=== PATIENT | female | born 1955 | race Caucasian/White ===

== ENCOUNTER 2023-05-13 23:25 | Inpatient (IN) | payer MEDICARE, OTHER, SELFPAY ==
[2023-05-13 18:55] VITALS: BP 143/64
[2023-05-13 19:12] VITALS: BMI 47.9
[2023-05-13 19:16] VITALS: BP 121/57
[2023-05-13] MEDS: DUONEB 3 ML INH ×2 (19:21→22:24)
[2023-05-13] MEDS: SOLU-MEDROL PF 125 MG IV (19:25)
[2023-05-13 19:28] LABS: % Basophils 0.3 % (0-2); % Eosinophils 0.2 % (0-6); % Immature Granulocytes 0.5 % (0-0.5); % Lymphocytes 13.4 % (20.5-51.1); % Neutrophils 73.6 % (42.2-75.2); Absolute Immature Granulocytes 0.1 10^3/uL (0-0.05); Absolute Lymphocytes 1.6 10^3/uL (1.2-3.4); Absolute Monocytes 1.4 10^3/uL (0.1-0.6); Absolute Neutrophils 8.6 10^3/uL (1.4-6.5); Hematocrit 50.3 % (37.0-47.0); Hemoglobin 15.9 g/dL (12.0-16.0); Mean Corp Hgb Conc. 31.6 g/dL (33.0-37.0); Mean Corpuscular Hgb 29.4 pg (27.0-31.0); Mean Platelet Volume 10.9 fL (7.4-10.4); Nucleated Red Blood Cells % 0 %; Platelet Count 223 10^3/uL (130-400); Red Blood Cell Count 5.41 10^6/uL (4.20-5.40); Red Cell Dist. Width 13.4 % (11.5-14.5); White Blood Cell Count 11.6 10^3/uL (4.8-10.8)
[2023-05-13 19:42] LABS: Lactic Acid 1.2 mmol/L (0.7-2.0)
[2023-05-13 19:45] LABS: APTT 23.4 Sec (23.4-35.0); INR 1.07; PT 13.9 Sec (11.4-14.6)
[2023-05-13 19:48] LABS: D-Dimer 0.64 ug/mlFEU (0.00-0.50)
--- NOTE | 2023-05-13 19:54 | ED.GENMED ---
History of Present Illness
General
Chief Complaint: Breathing Problem
Source: patient and family
Exam Limitations: none
Time Seen by Provider: 05/13/23 19:17
Nursing documentation reviewed up to this point in time: agreed with
Travel History
Have you had any contact with someone who has COVID-19?: No
Do you have any symptoms of coronavirus? Fever > 100 degrees, chills, cough, shortness of breath, sore throat, loss of taste or smell, muscle aches, or headache?: Yes
Symptoms:: cough, SOB
History of Present Illness
History of Present Illness:
67-year-old female with a past medical history of asthma, obesity who presents to the emergency department accompanied by her children for evaluation of shortness of breath. Patient reports that she has been dealing with subacute cough�persistent
coughing for about 6 weeks or so. Cough is mostly nonproductive although she says she occasionally bring up some sputum. It sounds like over the same period of time she has had progressive shortness of breath. Today she finally saw her primary
doctor who noted she was hypoxic and directed her to the emergency room for assessment�pulse ox was apparently consistently less than 85% in PCP office today. Patient denies any chest pain. She denies any recent fevers or chills. Has not noticed
any significant swelling in her legs. She has not had any GI symptoms. She has not had any congestion, sore throat/runny nose. She does have a history of asthma and says that she has had some sensation of decreased air movement recently and says
she has been using her albuterol inhalers with some relief of her symptoms. She denies any known cardiac history; non-smoker.
Review of Systems
Review of Systems
All Other Systems: ROS reviewed and negative except as documented in HPI and ROS
Constitutional: Denies fever or chills
EENT: Denies sore throat or runny nose
Respiratory: Reports cough and trouble breathing
Cardiac: Denies chest pain or palpitations
ABD/GI: Denies abdominal pain, nausea, vomiting or diarrhea
: Denies flank pain
Musculoskeletal: Denies edema, neck pain or back pain
Neurological: Denies headache
Phy Exam
Physical Exam
Physical Exam:
General: Awake, alert; no acute distress
Head: Normocephalic, atraumatic
Eyes: Conjunctiva normal, sclera anicteric
Throat: Airway intact, handling secretions
Neck: Trachea midline, no JVD noted
Lungs: Breath sounds slightly diminished at the lung bases but no focal wheezing, rales, rhonchi appreciated and patient appears to be moving good air; she has hypoxia to 70% on room air requiring 4 L nasal cannula to maintain saturations;
respiratory rate 20-22 slightly elevated but not in respiratory distress
Heart: Regular rate and rhythm, no murmurs, gallops, or rubs appreciated
Abd: Soft, non distended, nontender
Neuro: Cranial nerves grossly intact, speech fluid
Skin: no rash
Extremities: No edema in extremities, warm well-perfused with good pulses in all extremities
Scores
Heart Failure Risk
Heart Failure Risk Score: Not Applicable
Heart Score for Chest Pain Patients
STEMI patient?: Not applicable
Withdrawal Assessment of Alcohol
Withdrawal Assessment Completed?: Not applicable
Course
Orders/Labs/Results
Orders:
Orders
05/13/23 19:13
Electrocardiogram (*1) Urgent
Reason for Study: Other
Other Reason for Exam: Possible Sepsis
Cardiac Monitoring- Treatment ONCE
IV Insert/Care/Rem.- Treatment PRN
O2 Therapy [RESP] Urgent
Titrate/Wean O2 to maintain O2 sat greater than (%): 93
Special Instructions: TO MAINTAIN CONTINUOUS O2 SATS > OR = 93%
Pulse Ox/cont/shift [RESP] Urgent
Quantity: 1
Special Instructions: CONTINUOUS
05/13/23 19:14
CR Chest - 2 Views Urgent
Comment:
Reason For Exam: suspected infection
05/13/23 19:17
Complete Blood Count/With Diff Urgent
Comprehensive Metabolic Panel Urgent
Lactic Acid Q4H
Comment: ON ICE, CANCEL 2ND ORDER IF FIRST LACTIC ACID LEVEL <2
Blood Culture Q30M
SURY Source: Blood/Venous
Specimen Description:
Comment: FROM 2 SEPARATE SITES
Blood Culture Q30M
SURY Source: Blood/Venous
Specimen Description:
Comment: FROM 2 SEPARATE SITES
05/13/23 19:18
MethylPREDNISolone PF [Solu-Medrol Pf] 125 mg IV NOW STA
05/13/23 19:19
D-Dimer Urgent
NT-proBNP Urgent
PTT Urgent
Prothrombin Time Urgent
Ipratropium/Albuterol Sulfate [Duoneb] 3 ml INH R NOW ONE
05/13/23 19:25
COVID-19 Antigen Urgent
Source: Nasal Swab
Influenza A+B Rapid Molecular Urgent
SURY Source: Nasal Swab
Specimen Description:
05/13/23 19:59
Electrocardiogram (*1) Urgent
Reason for Study: Shortness of Breath
EKG- Treatment ONCE
05/13/23 20:08
CT Chest Pe Study Urgent
Comment:
Reason For Exam: hypoxia
Abnormal Lab Results
05/13/23 05/13/23
19:17 19:19
WBC 11.6 H 10^3/uL
(4.8-10.8)
RBC 5.41 H 10^6/uL
(4.20-5.40)
Hct 50.3 H %
(37.0-47.0)
MCHC 31.6 L g/dL
(33.0-37.0)
MPV 10.9 H fL
(7.4-10.4)
Abs Immat Gran (auto) 0.1 H 10^3/uL
(0-0.05)
Absolute Neuts (auto) 8.6 H 10^3/uL
(1.4-6.5)
Absolute Monos (auto) 1.4 H 10^3/uL
(0.1-0.6)
Lymphocytes % 13.4 L %
(20.5-51.1)
Monocytes % 12.0 H %
(1.7-9.3)
D-Dimer 0.64 H ug/mlFEU
(0.00-0.50)
Chloride 95 L mmol/L
(98-107)
Carbon Dioxide 40 H mmol/L
(22-30)
BUN 19 H mg/dl
(7-17)
Total Bilirubin 3.6 H mg/dl
(0.2-1.3)
05/13/23 19:17
05/13/23 19:17
Vital Signs
Initial and Last Documented VS:
Initial Vital Signs
Temp Pulse Resp BP Pulse Ox
37.1 C 66 20 143/64 78
05/13/23 18:55 05/13/23 18:55 05/13/23 18:55 05/13/23 18:55 05/13/23 18:55
Last Documented Vital Signs
Temp Pulse Resp BP Pulse Ox
37.1 C 71 10 130/42 92
05/13/23 18:55 05/13/23 21:30 05/13/23 21:30 05/13/23 21:28 05/13/23 21:30
MDM/Problems Addressed
Differential Diagnosis Includes:
Asthma exacerbation, pneumonia, pulmonary embolism
MDM/Problems Addressed:
67-year-old female presents to the emergency room for evaluation of subacute cough and worsening shortness of breath over the past 6 weeks, noted to be hypoxic at PCP office today. She arrives to us with a pulse ox of 78% on room air; she is
afebrile, respiratory rate slightly increased but she is not in respiratory distress. Physical exam as above. Plan placed IV check labs including a CBC and a CMP, coags, D-dimer. Will check a BNP. Check chest x-ray. Check an EKG. Check viral
swabs. Treat with some steroid and albuterol as she has had some symptomatic improvement with albuterol at home does have a known history of asthma although she does not have any significant wheezing on exam at present certainly not to explain
significant hypoxia. Will monitor closely reassess after the above.
Labs reviewed: CBC shows slight leukocytosis 12.6. CMP shows CO2 of 40 suggesting some degree of CO2 retention chronically. Will add on VBG. Mental status good. BNP is 623. COVID and flu negative. Chest x-ray no acute disease. D-dimer was
positive. Will send for CTA to rule out PE.
CTA negative for PE or any other acute pathology. At this point asthma or bronchitis seems most likely although again wheezing somewhat minimal. Will continue with Oksana, plan for admission for continued management of acute respiratory failure
with hypoxia. Case discussed with hospitalist for admission.
Chronic conditions affecting care:
Asthma, obesity
*Radiology
Radiology exam reviewed: preliminary read by ED provider and radiology read reviewed
*Pulse Oximetry
Patient hypoxic: yes
*Critical Care Note
Total Time (30-74mins, 75-104mins- exclusive of procedures): Not Applicable
Data Reviewed
Source: patient, records and family
Patient Management
Discussion with other providers: Hospitalist (Discussed with hospitalist)
Escalation/DeEscalation of care consider admission/obs:
Admission indicated
ED Attending Note
-
Portions of this chart may have been created with voice recognition software.� Occasional wrong word or��sound alike� substitutions may have occurred due to the inherent limitations of voice recognition software.
Discharge Plan
Departure
Patient Disposition: Admit
Date of Disposition: 05/13/23
Time of Disposition: 22:12
Admit to doctor: Igro
Presentation/result/management discussed w/ accepting MD/DO: Hospitalist
Discharge Problem:
Asthma exacerbation, Acute respiratory failure with hypoxia
Referrals:
Tesha Mcnair MD [Family Provider] -
Interventions
Interventions:
*Risk Screen - Suicide Last Done: 05/13/23 18:55
*General Assessment Last Done: 05/13/23 18:55
*Neglect/Abuse Screening Last Done: 05/13/23 18:55
ED- Fall Risk Assessment Last Done: 05/13/23 19:34
*ED COVID-19 Vaccine History Last Done: 05/13/23 19:14
ED- Cardiac Assessment Last Done: 05/13/23 19:34
ED- Pulmonary Assessment Last Done: 05/13/23 19:34
[2023-05-13 19:55] LABS: NT-proBNP 623 pg/ml
[2023-05-13 19:59] LABS: ALT (SGPT) 18 U/L (0-35); AST (SGOT) 35 U/L (14-36); Albumin 3.8 g/dl (3.5-5.0); Alkaline Phosphatase 117 U/L (38-126); Blood Urea Nitrogen 19 mg/dl (7-17); Calcium 9.1 mg/dl (8.4-10.2); Carbon Dioxide 40 mmol/L (22-30); Estimated Creatinine Clearance 81 ml/min; Glucose 93 mg/dl (70-99); Total Bilirubin 3.6 mg/dl (0.2-1.3); Total Protein 6.8 g/dl (6.3-8.2); eGFR > 60.00
[2023-05-13 20:02] VITALS: BP 135/61
[2023-05-13 20:02] LABS: COVID-19 Antigen Negative (Negative)
[2023-05-13 20:21] LABS: Chloride 95 mmol/L (98-107); Potassium 3.9 mmol/L (3.5-5.1); Sodium 142 mmol/L (135-145)
[2023-05-13 21:28] VITALS: BP 130/42
[2023-05-13 22:00] VITALS: BP 143/53
--- NOTE | 2023-05-13 23:17 | HPS.HSE ---
Family Physician
-
Family Physician: Tesha Mcnair
Chief Complaint
-
SOB
History of Present Illness
Patient is a 67y F with PMH significant for fibromyalgia, mild asthma and morbid obesity who presents to ED complaining of cough and SOB. History obtained from patient and family at the bedside. Patient states that she has had cough for about
4-6 weeks. Cough is largely non-productive without associated fevers / chills, chest pain or other complaints. She has felt more SOB over the past 2 weeks or so. Patient has been using her albuterol MDI at home with temporary improvement in her
symptoms. She was seen by her PCP today and noted to have SpO2 around 85% in the office and was sent to the ED for further evaluation.
Family notes that patient has had periods of confusion recently. Intermittent symptoms off-and-on throughout the day.
Patient notes that she has a pulse oximeter at home. Her oxygen saturation chronically has been near 90%. More recently, she has had home readings from 85 - 90%.
Patient is in no distress at present.
Family also notes that patient has been sleeping poorly at night with daytime somnolence. Her lips occasionally appear cyanotic during sleep. They have plans to pursue outpatient sleep testing but have not yet done so.
Medical History
Past Medical History
Past Medical History: Reports Other
Additional Past Medical History:
Morbid Obesity
Fibromyalgia
Psoriasis
Lumbar Spinal Stenosis
Diverticular Disease
IBS
Mild Intermittent Asthma
Hypothyroidism
Endometriosis
Gilbert's Syndrome
Past Surgical History: Reports Other
Additional Past Surgical History:
SWETHA
Ex Lap x several
Left Hemicolectomy
Cholecystectomy
Social History
Tobacco: Non-smoker
Alcohol: None
Family History
Family History: Other (Mother: CAD, Clear Cell Cancer Father: CAD Sister: Valvular Heart Disease)
Allergies / Home Medications
Allergies reflects when Allergies were last updated in [employer].
Home Medications with original date entered in [employer]
Allergy/Medication List:
Allergies
Allergy/AdvReac Type Severity Reaction Status Date / Time
demeclocycline Allergy Hives Verified 05/13/23 19:04
metoclopramide Allergy Hives Verified 05/13/23 19:04
tramadol Allergy Hives Verified 05/13/23 19:04
Home Medications
albuterol sulfate 90 mcg/actuation aerosol inhaler 2 puff inhalation R Q6 PRN sob/wheezing 05/13/23
alprazolam 1 mg tablet 1 mg PO HS 05/13/23
ascorbic acid (vitamin C) 500 mg tablet (Vitamin C) 500 mg PO DAILY 05/13/23
atorvastatin 10 mg tablet 10 mg PO HS 05/13/23
betamethasone, augmented 0.05 % topical cream 1 applic topical BID PRN rash on hands 05/13/23
celecoxib 200 mg capsule 200 mg PO DAILY PRN knee pain 05/13/23
cholecalciferol (vitamin D3) 125 mcg (5,000 unit) tablet (Vitamin D3) 125 mcg PO DAILY 05/13/23
levothyroxine 50 mcg tablet 50 mcg PO DAILY 05/13/23
loperamide 2 mg capsule 2 mg PO Q4H PRN diarrhea 05/13/23
pregabalin 300 mg capsule 300 mg PO BID 05/13/23
promethazine 25 mg tablet 25 mg PO Q6H PRN nausea/vomiting 05/13/23
propranolol 80 mg capsule,24 hr,extended release 80 mg PO HS 05/13/23
Review of Systems
-
History Source: Patient and Family
A 12 point ROS was completed and negative except as noted: Yes
Constitutional: Reports Fatigue; Denies Fever or Chills
EENT: Denies Sore Throat
Respiratory: Reports Cough and Trouble Breathing; Denies Hemoptysis
Cardiac: Denies Chest Pain, Diaphoresis or Palpitations
Abdomen/GI: Reports Diarrhea; Denies Abdominal Pain, Nausea, Vomiting, Bloody Stools or Black Stools
: Denies Dysuria, Frequency or Flank Pain
Musculoskeletal: Reports Other (Low Back Pain); Denies Joint Pain, Joint Swelling or Edema
Neurological: Denies Dizzy or Headache
Psych: Denies Depression or Anxiety
Physical Exam
Vital Signs
Vital Signs
Temp Pulse Resp BP Pulse Ox
98.7 F 64 13 143/53 96
05/13/23 18:55 05/13/23 22:45 05/13/23 22:45 05/13/23 22:00 05/13/23 22:45
Physical Exam
General: Other (67y F in no acute distress.)
HEENT: Moist mucous membranes and Other (Thick neck.)
Respiratory: Other (Few very faint end-expiratory wheezes. Otherwise clear.)
Cardiac: S1/S2 and Regular Rhythm; No Murmur
GI: Non Tender, Non Distended, Normal Bowel Sounds and Other (Obese)
Musculoskeletal: No Clubbing, No Cyanosis and No Edema
Neuro: AO x 3
Laboratory Results
-
05/13/23 19:17
05/13/23 19:17
Laboratory Results
PT 13.9 Sec (11.4-14.6) 05/13/23 19:19
INR 1.07 05/13/23 19:19
APTT 23.4 Sec (23.4-35.0) 05/13/23 19:19
Lactic Acid Cancelled 05/13/23 23:15
Total Bilirubin 3.6 mg/dl (0.2-1.3) H 05/13/23 19:17
AST 35 U/L (14-36) 05/13/23 19:17
ALT 18 U/L (0-35) 05/13/23 19:17
Alkaline Phosphatase 117 U/L (38-126) 05/13/23 19:17
Impression/Plan
-
A/P: Patient is a 67y F with PMH significant for fibromyalgia, asthma and morbid obesity who presents to ED for evaluation of cough and SOB.
Hypoxemic Respiratory Failure
Mild Intermittent Asthma with Possible Mild Exacerbation
- Admit for further evaluation and treatment.
- Unclear if this is acute or chronic - likely combination of the two and suspect large portion is the latter.
- Patient notes longstanding SpO2 at home around 90%.
- More recently 85-90%.
- Likely secondary to OHV / NARCISO / etc.
- Some minimal wheezing is appreciated on exam and - with cough - will treat for possible mild asthma exacerbation.
- PO steroids with prednisone and taper as able.
- Pulmonary evaluation for additional recommendations, etc.
- Continue PRN nebs.
- Will hold propranolol for now given asthma / mild wheezing.
- Would proceed with outpatient testing including PSG, etc as planned.
Chronic Hypercapnic Respiratory Failure
- ABGs done in the ED with pCO2 = 76 and normal pH indicative of chronic CO2 retention / OHV.
- Titrate O2 to keep SpO2 88-92%.
- Pulmonary / Sleep evaluation as noted above.
Fibromyalgia
- Stable. Continue current Lyrica.
Morbid Obesity due to excess calories
- Affects all aspects of care and suspect that obesity is contributing in large part to chronic > acute respiratory compromise.
- Encourage healthy diet and increased mobility as able with goal of weight reduction.
DVT Prophylaxis: High-dose Lovenox given morbid obesity
Code Status: Full
[2023-05-13 23:23] LABS: B.E. 15.6 mmol/L; O2 Saturation % 97.2 % (94-98); PO2 87 mmHg (83-108)
[2023-05-13 23:24] LABS: HCO3 44.6 mmol/L (21-28); PCO2 72 mmHg (32-35)
[2023-05-13 23:45] VITALS: BP 156/68
[2023-05-14] VITALS (9 sets, daily range): BP systolic 107–156; BP diastolic 43–68; O2SAT 94–98; BMI 46.0
[2023-05-14] MEDS: LIPITOR 10 MG PO ×2 (01:13→21:38)
[2023-05-14] MEDS: LYRICA 300 MG PO ×3 (01:14→19:14)
[2023-05-14] MEDS: XANAX 1 MG PO (01:14)
[2023-05-14 01:16] LABS: Troponin I 0.031 ng/ml
[2023-05-14 01:35] LABS: TSH Reflex To Free T4 1.38 uIU/ml (0.47-4.68)
--- NOTE | 2023-05-14 01:54 | PTCARENOTE ---
Pt received on floor at 00:45; AAOx3 in stable condition; Oriented to room and call hernandez, will continue to monitor
[2023-05-14] MEDS: SYNTHROID 50 MCG PO (06:31)
[2023-05-14] MEDS: DELTASONE 40 MG PO (08:27)
[2023-05-14] MEDS: LOVENOX 40 MG SC ×2 (08:27→19:14)
[2023-05-14] MEDS: PROTONIX 40 MG PO (08:27)
[2023-05-14] MEDS: VENTOLIN NEBULES 2.5 MG INH (08:53)
[2023-05-14 09:16] LABS: Hemoglobin 15.3 g/dL (12.0-16.0); Mean Corp Hgb Conc. 30.6 g/dL (33.0-37.0); Mean Corpuscular Hgb 29.4 pg (27.0-31.0); Mean Platelet Volume 11.5 fL (7.4-10.4); Platelet Count 183 10^3/uL (130-400); Red Blood Cell Count 5.21 10^6/uL (4.20-5.40); Red Cell Dist. Width 13.2 % (11.5-14.5); White Blood Cell Count 7.1 10^3/uL (4.8-10.8)
[2023-05-14 09:31] LABS: Blood Urea Nitrogen 23 mg/dl (7-17); Calcium 8.7 mg/dl (8.4-10.2); Carbon Dioxide 38 mmol/L (22-30); Chloride 96 mmol/L (98-107); Estimated Creatinine Clearance 118 ml/min; Glucose 217 mg/dl (70-99); Potassium 4.1 mmol/L (3.5-5.1); Sodium 140 mmol/L (135-145); eGFR > 60.00
[2023-05-14 09:41] LABS: Troponin I 0.016 ng/ml
--- NOTE | 2023-05-14 11:07 | CON.PUL ---
Consultation
Consultation Request
Date/Time Consultation Requested: 05/14/2023
Date/Time Consultation Performed: 05/14/2023
Requesting Provider: Dr. Costa
Performing Provider: Dr. Jordan Price
Reason for Consultation: Shortness of breath, chronic hypercapnic respiratory failure.
Medical History
-
History of Present Illness:
67-year-old woman with past medical history noted came to the emergency room complaining of cough and shortness of breath. She reports coughing for about 4 to 6 weeks. Cough is mainly nonproductive, there is no reports of fevers, chills,
hemoptysis or significant phlegm production.
Has been using albuterol rescue inhaler without success.
She was noted to be hypoxemic down to 85% at primary care doctor's office and she was sent for evaluation.
Patient apparently has poor sleep quality. Apparently some nocturnal cyanosis have been noted. She was to pursue outpatient sleep evaluation in the outpatient but has not been able to.
Past Medical History
Past Medical History: Other
Social History
Tobacco: Non-smoker
Alcohol: None
Family History
Family History: Reviewed & Not Pertinent
Allergies / Home Medications
Allergies
Allergy/AdvReac Type Severity Reaction Status Date / Time
demeclocycline Allergy Hives Verified 05/13/23 19:04
metoclopramide Allergy Hives Verified 05/13/23 19:04
tramadol Allergy Hives Verified 05/13/23 19:04
Home Medications
Medication Instructions Recorded Confirmed Last Taken Type
albuterol sulfate 90 mcg/actuation 2 puff inhalation R Q6 PRN 05/13/23 05/13/23 Unknown History
aerosol inhaler sob/wheezing
alprazolam 1 mg tablet 1 mg PO HS 05/13/23 05/13/23 Unknown History
ascorbic acid (vitamin C) 500 mg 500 mg PO DAILY 05/13/23 05/13/23 Unknown History
tablet (Vitamin C)
atorvastatin 10 mg tablet 10 mg PO HS 05/13/23 05/13/23 Unknown History
betamethasone, augmented 0.05 % 1 applic topical BID PRN rash on 05/13/23 05/13/23 Unknown History
topical cream hands
celecoxib 200 mg capsule 200 mg PO DAILY PRN knee pain 05/13/23 05/13/23 Unknown History
cholecalciferol (vitamin D3) 125 125 mcg PO DAILY 05/13/23 05/13/23 Unknown History
mcg (5,000 unit) tablet (Vitamin
D3)
levothyroxine 50 mcg tablet 50 mcg PO DAILY 05/13/23 05/13/23 Unknown History
loperamide 2 mg capsule 2 mg PO Q4H PRN diarrhea 05/13/23 05/13/23 Unknown History
pregabalin 300 mg capsule 300 mg PO BID 05/13/23 05/13/23 Unknown History
promethazine 25 mg tablet 25 mg PO Q6H PRN nausea/vomiting 05/13/23 05/13/23 Unknown History
propranolol 80 mg capsule,24 80 mg PO HS 05/13/23 05/13/23 Unknown History
hr,extended release
Review of Systems
-
History Source: Patient
All other systems: Negative unless noted
Vitals / Labs / Diagnostic Testing
Vital Signs
Temp Pulse Resp BP Pulse Ox
97.7 F 62 19 118/45 97
05/14/23 08:03 05/14/23 08:03 05/14/23 08:03 05/14/23 08:03 05/14/23 10:13
Lab Data
05/14/23 08:20
05/14/23 08:20
Laboratory Results
05/13/23 05/13/23
19:19 23:17
PT 13.9
INR 1.07
APTT 23.4
pH 7.40
pCO2 72 H*
pO2 87
HCO3 44.6 H*
O2 Delivery Level
Microbiology
05/13/23 19:25 Nasal Swab Influenza Types A & B (JORGE LUIS) - Final
Negative for Influenza A & B, NAAT
Negative results must be combined with clinical observations
and patient history.
Nucleic Acid Amplification test (NAAT)performed on the
[employer] platform.
Diagnostic Testing:
Assessment
-
67-year-old woman with history of morbid obesity, mild intermittent asthma, chronic hypercapnic respiratory failure untreated, admitted to the hospital with mild hypoxemia, lethargy, coughing for the last 6 weeks.
Hypoxemic respiratory failure-2 L nasal cannula.
Patient does report low oxygen levels at home on a chronic basis down to 88-87%.
Multiple mechanisms including possibility of an asthma mild exacerbation
proBNP not elevated
Cardiac biomarkers negative.
Negative COVID
CT chest 05/13/2023: No evidence for pulmonary embolism. No significant pulmonary abnormality. Mild bibasilar lower lobe dependent subsegmental atelectasis.
Morbid obesity
Chronic hypercapnic respiratory failure-Compensated. Likely obesity hypoventilation syndrome/obstructive sleep apnea.
No PSG available.
ABG 05/13/2023: 7.40/72/87
Conditions present prior admission:
Morbid obesity
Fibromyalgia
Psoriasis
Spinal stenosis
IBS
? Mild intermittent asthma
Hypothyroidism-Normal TSH 05/14/2023
Endometriosis
Gilbert's syndrome
Echocardiogram 04/28/2019: Normal LVEF. Mild LVH. Grade 1 diastolic dysfunction. Normal RV systolic function.
Nuclear stress test 05/01/2019: Inconclusive EKG for ischemia. Normal LVEF. Moderate risk study. Report says no significant active coronary artery disease.
Plan recommendation:
So far I find no reason for acute hypoxemia: CT chest without parenchymal lung abnormalities or pulmonary embolism.
Suspect mainly due to obesity and chronic hypercapnia.
Patient is on multiple sedatives including: Promethazine/pregabalin/alprazolam. Would limit as able.
-
Patient reports coughing for the last 6 weeks. On exam minimal expiratory wheezing. Appears in no acute distress at the moment.
Okay with a short course of prednisone.
Will add DuoNebs 3 times a day.
Okay to use albuterol as needed
Incentive spirometry
Will check ambulatory pulse oximetry, may need supplemental oxygen to go home. Suspect mainly due to morbid obesity.
-
Hypercapnic respiratory failure: Compensated.Likely due to undiagnosed obesity hypoventilation syndrome/obstructive sleep apnea.
Will need outpatient sleep evaluation.
High risk of readmission and complication with chronic hypercapnia that is untreated.
-
Per outpatient records: Patient has been having difficulty sleeping. She is a sleep deprived and tired.
-
DVT prophylaxis with Lovenox
-
Recommend outpatient pulmonary and sleep follow-up.Information will be left in the chart.
--- NOTE | 2023-05-14 11:18 | W.PN.HOSP.TC ---
Today's Communication/Plan
-
continue prednisone
F/U further pulmonary recs
Assessment / Plan
Assessment / Plan
Patient is a 67 yo woman with PMH significant for fibromyalgia, asthma and morbid obesity who presents to ED for evaluation of cough and SOB.
Hypoxemic Respiratory Failure
Mild Intermittent Asthma with Possible Mild Exacerbation
�- Unclear if this is acute or chronic - likely combination of the two and suspect large portion is the latter.
�- Patient notes longstanding SpO2 at home around 90%.
�- More recently 85-90%.
�- Likely secondary to OHV / NARCISO / etc.
�- Some minimal wheezing is appreciated on exam and - with cough - will treat for possible mild asthma exacerbation
�- PO steroids with prednisone and taper as able.
�- Pulmonary evaluation for additional recommendations, etc.
�- Continue PRN nebs.
�- Will hold propranolol for now given asthma / mild wheezing.
�- Would proceed with outpatient testing including PSG, etc as planned.
Chronic Hypercapnic Respiratory Failure
�- ABGs done in the ED with pCO2 = 76 and normal pH indicative of chronic CO2 retention / OHV.
�- Titrate O2 to keep SpO2 88-92%.
�- Pulmonary / Sleep evaluation as noted above.
Fibromyalgia
�- Stable.� Continue current Lyrica.
Morbid Obesity due to excess calories
�- Affects all aspects of care and suspect that obesity is contributing in large part to chronic > acute respiratory compromise.
�- Encourage healthy diet and increased mobility as able with goal of weight reduction.
DVT Prophylaxis:� High-dose Lovenox given morbid obesity
Code Status:� Full
Anticipated Discharge: 24 - 48 hours
Subjective/Interval History
-
Date of Service: May 14, 2023
feeling a little better than yesterday
wheezing improving
Objective Data
-
Labs:
Laboratory Results
05/13/23 05/14/23
23:17 08:20
WBC 7.1
Hgb 15.3
Hct 50.0 H
Plt Count 183
HCO3 44.6 H*
Sodium 140
Potassium 4.1
Chloride 96 L
Carbon Dioxide 38 H
BUN 23 H
Creatinine 0.6
Glucose 217 H
Calcium 8.7
Vital Signs:
Vital Signs
Temp Pulse Resp BP Pulse Ox
97.7 F 62 19 118/45 97
05/14/23 08:03 05/14/23 08:03 05/14/23 08:03 05/14/23 08:03 05/14/23 10:13
Review of Systems
-
History Source: Patient
All other systems: Reviewed and negative
Physical Exam
-
General: No Apparent Distress and Other (difficulty arousing from sleep then awake and conversant )
HEENT: PERRLA
Respiratory: Clear to Auscultation; Negative Wheezes
Cardiac: Regular Rhythm and S1/S2
GI: Soft and Nontender
Musculoskeletal: No Edema
Skin: Warm and Dry; Negative Rash
Neuro: AO x 3
Psych: Calm
Data Reviewed
-
Diagnostic Radiology: Report Reviewed by me
Labs: Labs Reviewed by me
--- NOTE | 2023-05-14 12:32 | CM ---
casino shift manager reviewed patient's chart and met with patient and patient reports that she lives with her daughter in a multilevel home, in law suite, patient is independent with adl's and uses a cane with ambulation, patient also has a walker, patient
did not require oxygen prior to admission, patient drives, patient has a prescription plan and patient uses [facility].
Patient is currently requiring 6 liters of oxygen 97%, no home oxygen.
PCP: Dr. Mcnair
Plan; To follow for home oxygen needs at discharge.
[2023-05-14 12:50] LABS: Troponin I 0.015 ng/ml
--- NOTE | 2023-05-14 13:04 | W.PN.UPDATE ---
Update Note
Progress Note Update
hyperglyemic on steroids this AM
-I will order A1c and start low dose ISS
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 (received 1mg last night as one time order).
[2023-05-14] MEDS: DUONEB 3 ML INH ×2 (13:29→20:55)
[2023-05-14 16:50] LABS: Glucose - Point of Care 132 mg/dl (70-99)
[2023-05-14 21:17] LABS: Glucose - Point of Care 157 mg/dl (70-99)
[2023-05-14] MEDS: XANAX 0.5 MG PO (21:38)
[2023-05-15 03:05] VITALS: BP 133/61
[2023-05-15 06:00] VITALS: BMI 47.2
[2023-05-15] MEDS: SYNTHROID 50 MCG PO (06:00)
[2023-05-15 07:00] VITALS: BP 130/59
[2023-05-15 07:46] LABS: Glucose - Point of Care 72 mg/dl (70-99)
[2023-05-15] MEDS: DUONEB 3 ML INH ×2 (08:07→13:07)
[2023-05-15 08:44] LABS: Glycohemoglobin (HgbA1c) 6.5 % (4.0-5.6)
[2023-05-15] MEDS: LYRICA 300 MG PO (09:14)
[2023-05-15] MEDS: PROTONIX 40 MG PO (09:14)
[2023-05-15] MEDS: LOVENOX 40 MG SC (09:14)
[2023-05-15] MEDS: DELTASONE 40 MG PO (09:14)
--- NOTE | 2023-05-15 10:32 | W.PN.UPDATE ---
Update Note
Progress Note Update
Patient seen and examined on this date and presumptive discharge date still has to undergo home oxygen screen for oxygen requirements at home which will be needed as she remains on mid flow she knows to follow-up with her scheduled sleep study as
outpatient she does not want to pursue any further steroids or steroid taper at this point on examination she has no active bronchospasm we discussed the need to limit any sedating medications such as her prior dosing of promethazine pregabalin and
alprazolam. As this would only further aggravate her hypoventilation syndrome in the setting of her obstructive sleep apnea. Once we can set up home oxygen through case management she should be able to be discharged I will put the discharge order
written and will advise and reach out to case management
--- NOTE | 2023-05-15 10:40 | W.PN.UPDATE ---
Update Note
Progress Note Update
Patient is in need of oxygen on exertion due to pulse oximetry of 91% on room air at rest; 88% on room air with exertion.
Patient was placed on 4L O2 via nasal cannula with saturation of 95%. Oxygen will help to improve hypoxemia.
Patient is mobile within the home. Albuterol therapy has been discussed and is ineffective in treating hypoxemia-related symptoms.
Oxygen will improve the patient's symptoms.
--- NOTE | 2023-05-15 10:41 | W.DS.TRANS ---
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
-
Discharge Instructions:
Discharge Diagnosis/Procedures Persisting cough
Obesity hypoventilation syndrome with
hypercapnia
Hypoxic respiratory failure and requirement for
home oxygen
Diet Regular
Activity As tolerated
Driving Restrictions As prior to admission
Instructions:
Stand-Alone Forms:
Changes to Home Medications: No
Discharge Medications:
DC Medications w/original date entered in [employer]
albuterol sulfate 90 mcg/actuation aerosol inhaler 2 puff inhalation R Q6 PRN sob/wheezing 05/13/23
ascorbic acid (vitamin C) 500 mg tablet (Vitamin C) 500 mg PO DAILY 05/13/23
atorvastatin 10 mg tablet 10 mg PO HS 05/13/23
betamethasone, augmented 0.05 % topical cream 1 applic topical BID PRN rash on hands 05/13/23
celecoxib 200 mg capsule 200 mg PO DAILY PRN knee pain 05/13/23
cholecalciferol (vitamin D3) 125 mcg (5,000 unit) tablet (Vitamin D3) 125 mcg PO DAILY 05/13/23
levothyroxine 50 mcg tablet 50 mcg PO DAILY 05/13/23
loperamide 2 mg capsule 2 mg PO Q4H PRN diarrhea 05/13/23
pregabalin 300 mg capsule 300 mg PO BID 05/13/23
propranolol 80 mg capsule,24 hr,extended release 80 mg PO HS 05/13/23
Home Medication Changes
Pending Results: No
Total time spent discharging patient (in min): 37
--- NOTE | 2023-05-15 10:59 | W.DCSUMMARY ---
Discharge Summary
Discharge Data
Date of Admission: 05/13/23
Date of Discharge: 05/15/23
-
Pending Results: No
Hospital Course
67-year-old female with a past medical history of fibromyalgia and asthma and morbid obesity who presents for evaluation of a cough and shortness of breath to the ED on date of admission. She had had a cough for 4 to 6 weeks nonproductive not
associated with fever chills hemoptysis or phlegm production. She has been using an albuterol rescue inhaler at home. He was subsequently found to have hypoxic respiratory failure only minimal criteria for exacerbation of what appears to be mild
intermittent asthma with mild exacerbation became unclear what was causing her hypoxia as a extensive workup/a nasal swab for influenza was negative and tested COVID-negative. A CT of the chest showed no evidence of any pulmonary embolus no
significant pulmonary abnormality was noted with mild bibasilar lower lobe dependency and subsequent minimal atelectasis after being seen by the and evaluated by the pulmonary service and noting negative biomarkers for cardiac issues including
proBNP and troponin is felt that the patient is suffering from chronic hypercapnic respiratory failure that is compensated likely in relation hide obesity hypoventilation syndrome and obstructive sleep apnea for which she has never had any polyps
sonogram done and will have it scheduled as an outpatient. An ABG did show evidence of hypercapnia with a pH of 7.40 with a pCO2 of 7/an echocardiogram was normal EF with grade 1 diastolic dysfunction and normal RV systolic
function 2
Although she was placed on her initial steroid taper this only resulted hyperglycemia and the patient refused further tapering schedule and nonetheless did not have any significant bronchospasm that would justify it. She was instructed on the use
of continued albuterol at home along with incentive spirometry and she will have a home oxygen screen prior to her discharge at this presume that she still on the floor oxygen aspect of 6 L that she may require oxygen therapy at home and will have
case management arranges based on that study
Pulmonary evaluation also added that she will remain at high risk for readmission and complication with chronic hypercapnia that is untreated until she has further definition of her sleep apnea and hypoventilation. It is also recommended that she
try and reduce her sedating medications that include promethazine pregabalin and alprazolam
Discharge Plan
-
Patient Disposition: Home (Routine Discharge)
Discharge Diagnosis/Procedures: Persisting cough
Obesity hypoventilation syndrome with hypercapnia
Hypoxic respiratory failure and requirement for home oxygen
Diet: Regular
Activity: As tolerated
Driving Restrictions: As prior to admission
Referrals:
Jordan Steele MD [Active] - in two to three weeks
(Sleep evaluation/asthma
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
Tesha Mcnair MD [Family Provider] - in less than 1 week
Prescriptions:
Continued
celecoxib 200 mg capsule
200 mg PO DAILY PRN (Reason: knee pain)
loperamide 2 mg Capsule
2 mg PO Q4H PRN (Reason: diarrhea)
atorvastatin 10 mg tablet
10 mg PO HS
betamethasone, augmented 0.05 % cream
1 applic TOPICAL BID PRN (Reason: rash on hands)
ascorbic acid (vitamin C) [Vitamin C] 500 mg Tablet
500 mg PO DAILY
levothyroxine 50 mcg tablet
50 mcg PO DAILY
propranolol 80 mg capsule,extended release 24hr
80 mg PO HS
albuterol sulfate 90 mcg/actuation Hfa Aerosol Inhaler
2 puff INHALATION R Q6 PRN (Reason: sob/wheezing)
pregabalin 300 mg Capsule
300 mg PO BID
Patient Comments:
05/13/2023: per PDMP, last filled 04/22/23, 180 tabs for 90 days from [facility]
cholecalciferol (vitamin D3) [Vitamin D3] 125 mcg (5,000 unit) Tablet
125 mcg PO DAILY
Discontinued
alprazolam 1 mg tablet
1 mg PO HS
Patient Comments:
05/13/2023: last filled 04/06/23, 90 tabs for 30 days from [facility]
promethazine 25 mg Tablet
25 mg PO Q6H PRN (Reason: nausea/vomiting)
Discharge Orders:
Discharge Patient (As Directed); Ordered 05/15/23
Ordered By: Farrukh Benoit
[2023-05-15 11:00] VITALS: BP 117/62
[2023-05-15 11:50] LABS: Glucose - Point of Care 84 mg/dl (70-99)
--- NOTE | 2023-05-15 12:41 | CM ---
Chart reviewed. Plan for discharge home today. Patient will require home O2. Assessment completed and documented. CM spoke with patient who is in agreement with home O2 through [facility]. All clinical and script faxed to Sarah at [facility]. Per Sraah,
portable will be at within two hours and concentrator delivery will be arranged from there. Patient reports that daughter will be providing transportation home. RN updated. CM remains available.
PLAN: Plan for discharge home with new home O2 set up.
--- NOTE | 2023-05-15 13:00 | W.PN.PUL.V3 ---
Today's Communication / Plan
-
Wean oxygen
Assess discharge supplemental oxygen needs
Prednisone taper
Outpatient pulmonary/sleep disorders follow-up
Assessment
-
67-year-old woman with history of morbid obesity, mild intermittent asthma, chronic hypercapnic respiratory failure untreated, admitted to the hospital with mild hypoxemia, lethargy, coughing for the last 6 weeks.
Hypoxemic respiratory failure-2 L nasal cannula.
Patient does report low oxygen levels at home on a chronic basis down to 88-87%.
Multiple mechanisms including possibility of an asthma mild exacerbation
proBNP not elevated
Cardiac biomarkers negative.
Negative COVID
CT chest 05/13/2023: No evidence for pulmonary embolism. No significant pulmonary abnormality. Mild bibasilar lower lobe dependent subsegmental atelectasis.
Morbid obesity
Chronic hypercapnic respiratory failure-Compensated. Likely obesity hypoventilation syndrome/obstructive sleep apnea.
No PSG available.
ABG 05/13/2023: 7.40/72/87
Conditions present prior admission:
Morbid obesity
Obstructive sleep apnea suspected-polysomnogram pending 05/20/2023
Fibromyalgia
Psoriasis
Spinal stenosis
IBS
? Mild intermittent asthma
Hypothyroidism-Normal TSH 05/14/2023
Endometriosis
Gilbert's syndrome
Echocardiogram 04/28/2019: Normal LVEF. Mild LVH. Grade 1 diastolic dysfunction. Normal RV systolic function.
Nuclear stress test 05/01/2019: Inconclusive EKG for ischemia. Normal LVEF. Moderate risk study. Report says no significant active coronary artery disease.
Plan
Respiratory status slowly improving
Wean oxygen
Assess discharge supplemental oxygen needs
Nebulizers continue
Albuterol as needed
Incentive spirometry
Check ambulatory pulse oximetry-May require supplemental oxygen at home
Etiology of acute hypoxemia-CT chest without parenchymal lung abnormalities or pulmonary embolism.
Suspect mainly due to obesity and chronic hypercapnia.
Patient is on multiple sedatives including: Promethazine/pregabalin/alprazolam. Would limit as able.
Hypercapnic respiratory failure: Compensated.Likely due to undiagnosed obesity hypoventilation syndrome/obstructive sleep apnea.
Outpatient sleep evaluation recommended-patient reports polysomnogram ordered by primary-Dr. Mcnair scheduled for 05/20/2023
High risk of readmission and complication with chronic hypercapnia that is untreated.
DVT prophylaxis with Lovenox
Nutrition
Early mobilization
Recommend outpatient pulmonary and sleep follow-up.Information will be left in the chart.
Subjective Data
-
Date of Service:
Date of Service: May 15, 2023
Chief Complaint: Pulmonary Follow Up and Dyspnea Follow Up
Subjective:
No complaints of worsening shortness of breath, chest pain, productive cough
Review of Systems
General: Other (Per HPI)
Objective Data
Data Reviewed
Vital Signs / I&O:
Vital Signs
Temp Pulse Resp BP Pulse Ox
97.4 F 64 20 117/62 96
05/15/23 11:00 05/15/23 11:00 05/15/23 11:00 05/15/23 11:00 05/15/23 11:00
Intake and Output
05/14/23 05/15/23 05/16/23
06:59 06:59 06:59
Intake Total 200 / 200
Balance 200 / 200
SaO2: 96
Nasal Cannula flow liters per minute: 3
Physical Exam
General: Respiratory Distress (n) and Comfortable
HEENT: Normocephalic, Anicteric and Other (Thick neck)
Cardiovascular: Regular Rhythm
Respiratory: Clear (Diminished breath sounds), Wheeze (n), Crackles (n), Rhonchi (n), Non-Labored Respirations, Accessory Resp Muscle Use (n) and Stridor (n)
GI: Soft, Non Distended and Non Tender
Neurology: Awake, Alert and No Motor Deficits
Skin: Warm, Good Color, Cyanosis (n) and Jaundice (n)
Labs/Micro/Reports
Lab Data
05/14/23 08:20
05/14/23 08:20
Microbiology
05/13/23 19:17 Blood/Venous Blood Culture - Preliminary
No Growth in 24 hours- Final report to follow
05/13/23 19:17 Blood/Venous Blood Culture - Preliminary
No Growth in 24 hours- Final report to follow
05/13/23 19:25 Nasal Swab Influenza Types A & B (JORGE LUIS) - Final
Negative for Influenza A & B, NAAT
Negative results must be combined with clinical observations
and patient history.
Nucleic Acid Amplification test (NAAT)performed on the
Pager platform.
== END 2023-05-15 16:40 | disposition home or self-care (01) | DRG 205 ==
LOC: 4 WEST ACU 23:25
PROVIDERS: ADMITTING PHYSICIAN Hospitalist; ATTENDING PHYSICIAN Internal Medicine; CONSULT PHYSICIAN Internal Medicine Critical Care Medicine; EMERGENCY PHYSICIAN Emergency Medicine; FAMILY PHYSICIAN Family Medicine
DX: E66.2 Morbid (severe) obesity with alveolar hypoventilation (principal); J96.01 Acute respiratory failure with hypoxia; J98.11 Atelectasis; Z68.42 Body mass index [BMI] 45.0-49.9, adult; E87.29 Other acidosis; J96.12 Chronic respiratory failure with hypercapnia; J45.30 Mild persistent asthma, uncomplicated; M79.7 Fibromyalgia; M48.061 Spinal stenosis, lumbar region without neurogenic claudication; K57.90 Diverticulosis of intestine, part unspecified, without perforation or abscess without bleeding; K58.9 Irritable bowel syndrome, unspecified; E03.9 Hypothyroidism, unspecified; E80.4 Gilbert syndrome; Z80.9 Family history of malignant neoplasm, unspecified; Z82.49 Family history of ischemic heart disease and other diseases of the circulatory system; Z88.5 Allergy status to narcotic agent; Z88.8 Allergy status to other drugs, medicaments and biological substances; Z79.890 Hormone replacement therapy; Z79.1 Long term (current) use of non-steroidal anti-inflammatories (NSAID); Z72.820 Sleep deprivation; Z11.52 Encounter for screening for COVID-19
CPT/HCPCS: 71046; 71275; 80048; 80053; 82805; 82962; 83036; 83605; 83880; 84443; 84484; 85025; 85027; 85379; 85610; 85730; 87040; 87502; 87811; 93005; 94640; 94762; 96374; 97162; 97166; 99285; Q9967

== ENCOUNTER → 2023-05-20 | Outpatient (REF) | payer MEDICARE, OTHER, SELFPAY | LOC: DHSLP | PROVIDERS: ATTENDING PHYSICIAN Physician Assistant | DX: G47.33 Obstructive sleep apnea (adult) (pediatric) (principal); R09.02 Hypoxemia | CPT/HCPCS: 95800 ==

== ENCOUNTER → 2023-08-03 10:32 | Outpatient (REF) | payer MEDICARE, OTHER, SELFPAY | LOC: RAD 10:32 | PROVIDERS: ATTENDING PHYSICIAN Family Medicine; FAMILY PHYSICIAN Family Medicine | DX: M25.561 Pain in right knee (principal); M25.562 Pain in left knee; M17.0 Bilateral primary osteoarthritis of knee | CPT/HCPCS: 73560; 73565 ==

== ENCOUNTER 2024-12-28 15:24 | Inpatient (IN) | payer MEDICARE, OTHER, SELFPAY ==
[2024-12-28 10:46] VITALS: BP 189/80
[2024-12-28 10:51] VITALS: BMI 49.4
[2024-12-28 11:17] LABS: Hematocrit 44.7 % (37.0-47.0); Hemoglobin 15.2 g/dL (12.0-16.0); Mean Corp Hgb Conc. 34.0 g/dL (33.0-37.0); Mean Corpuscular Volume 87.8 fL (81.0-99.0); Nucleated Red Blood Cells % 0 %; Platelet Count 211 10^3/uL (130-400); Red Cell Dist. Width 12.3 % (11.5-14.5)
[2024-12-28 11:22] LABS: ALT (SGPT) 24 U/L (0-35); AST (SGOT) 25 U/L (14-36); Albumin 4.3 g/dl (3.5-5.0); Alkaline Phosphatase 138 U/L (38-126); Blood Urea Nitrogen 13 mg/dl (7-17); Calcium 9.8 mg/dl (8.4-10.2); Carbon Dioxide 30 mmol/L (22-30); Chloride 101 mmol/L (98-107); Estimated Creatinine Clearance 120 ml/min; Glucose 167 mg/dl (70-99); Lipase 42 U/L (23-300); Potassium 3.8 mmol/L (3.5-5.1); Sodium 137 mmol/L (135-145); Total Protein 7.5 g/dl (6.3-8.2); eGFR > 60.00
--- NOTE | 2024-12-28 11:27 | ED.GENMED ---
History of Present Illness
<Henrik Giraldo PA-C - Last Filed: 12/28/24 18:47>
General
Chief Complaint: Abdominal Symptoms
Time Seen by Provider: 12/28/24 11:05
History of Present Illness
History of Present Illness:
69-year-old female with history of morbid obesity, hypothyroidism and prior left hemicolectomy presents to the emergency department for evaluation of epigastric pain that began suddenly last night, colicky in nature, increasing in severity. Unable
to tolerate p.o. food or fluids, has had multiple episodes of vomiting since onset. Prior abdominal surgery includes after mentioned hemicolectomy as well as hysterectomy and cholecystectomy. Has had prior bowel obstruction in the past. No fevers
Review of Systems
<Henrik Giraldo PA-C - Last Filed: 12/28/24 18:47>
Review of Systems
Allergies reviewed?: Yes
All Other Systems: ROS reviewed and negative except as documented in HPI and ROS
Phy Exam
<Henrik Giraldo PA-C - Last Filed: 12/28/24 18:47>
Physical Exam
Physical Exam:
GEN: Ill-appearing, visibly uncomfortable
HEENT: Oral mucosa moist, no scleral icterus
Cardiac: Regular rate and rhythm, no murmur
Lung: Tachypneic without respiratory distress
Abdomen: Obesity limits exam however severe epigastric and periumbilical tenderness, there is a soft ventral hernia with no evidence for incarceration
MSK: No gross deformity or injuries
Skin: Good color, no pallor or jaundice, no rashes
Neuro: AO x3, moves all extremities freely
Psych: Calm, cooperative
Course
<Henrik Giraldo PA-C - Last Filed: 12/28/24 18:47>
Orders/Labs/Results
Orders:
Orders
12/28/24 Lunch
NPO
Allow oral meds: Yes
Allow clear liquids: No
12/28/24 10:50
Electrocardiogram (*1) Urgent
Reason for Study: Abdominal Pain
12/28/24 10:51
EKG- Treatment ONCE
12/28/24 11:03
Complete Blood Count/With Diff Urgent
Comprehensive Metabolic Panel Urgent
Direct Bilirubin Urgent
Comment: ADD ON
Lipase Urgent
12/28/24 11:26
CT Abd/Pel (IV only)-DH only Urgent
Comment:
Reason For Exam: epigastric pain
HYDROmorphone [Dilaudid] 0.5 mg IV NOW STA
Ondansetron Injectable [Zofran] 4 mg IV NOW STA
12/28/24 11:35
Lactic Acid Urgent
12/28/24 14:17
Acetaminophen 1000MG/100Ml [Ofirmev] 1,000 mg in 100 ml IV ONCE
Acetaminophen IV Indication:: ED Narcotic Naive Pt-ONCE
Ondansetron Injectable [Zofran] 4 mg IV NOW STA
12/28/24 14:18
Ondansetron Injectable [Zofran] 4 mg .ROUTE .STK-MED ONE
12/28/24 14:23
Add On- LAB Routine
Tests Added?: direct bilirubin
12/28/24 14:43
Admit/Transfer Patient As Directed
Co-Sign Provider:
Level of Care: Inpatient admission
Assign to:: Telemetry
Physician / Group: Lana Ramos
Diagnosis: evolving SBO
Reason for Telemetry: Chest Pain syndromes
Date to Stop Telemetry: 12/30/24
Time to Stop Telemetry: 11:00
Reason for Hospitalization: developing SBO
Expected length of stay greater than two midnights?: Yes
ELOS- Estimated Length of Stay in days: 3
I certify the patient meets the requirements for IP care: Yes
PRN Pain Medication Management As Directed
May give lesser potent ordered pain med per pt: Yes
preference::
Protocol:: Medication orders for pain may be administered in a
manner that supports deferring to patient preference
when the pt is:
- Requesting an ordered lesser potent pain medication.
Least to most potent pain medications are defined
as: acetaminophen < NSAID < tramadol < opioids
(morphine, oxycodone, hydromorphone).
- Requesting a lesser dose of the same medication IF
ORDERED.
- Requesting a less intrusive route of administration
if both routes are prescribed by the provider (PO <
IV).
12/28/24 14:50
Code Status As Directed
Resuscitation Status: Full Code
12/28/24 18:15
Acetaminophen [Tylenol] 650 mg PO Q4HPRN PRN
Enoxaparin Sodium [Lovenox] 40 mg SC QPM
HYDROmorphone [Dilaudid] 0.5 mg IV Q4HPRN PRN
Ketorolac [Toradol] 10 mg IV Q6HPRN PRN
Lactated Ringers [Lr] 1,000 ml IV 70 mls/hr
Ondansetron Injectable [Zofran] 4 mg IV Q6HPRN PRN
12/28/24 18:15
Consult Surgery [SURGICAL CONSULT] Routine
Consulting Provider: Devan Aburto
Was physician already notified: Yes
Activity As Directed
Activity Level: As Tolerated
Vital Signs As Directed
Frequency: Per unit guidelines
Pulse Ox/cont/shift [RESP] Routine
Quantity: 1
DX Deep Vein Thrombosis Video Routine
12/28/24 20:00
Pregabalin [Lyrica] 300 mg PO BID
12/28/24 22:00
Atorvastatin [Lipitor] 10 mg PO HS
Propranolol Extended Release [Inderal LA] 80 mg PO HS
12/29/24 06:00
Basic Metabolic Panel IN AM
Complete Blood Count/With Diff IN AM
Magnesium IN AM
Levothyroxine [Synthroid] 50 mcg PO DAILY @ 0600
12/30/24 11:00
DC Protocol for Telemetry ONCE
Abnormal Lab Results
12/28/24
11:03
WBC 13.3 H 10^3/uL
(4.8-10.8)
MPV 11.1 H fL
(7.4-10.4)
Abs Immat Gran (auto) 0.1 H 10^3/uL
(0-0.05)
Absolute Neuts (auto) 11.3 H 10^3/uL
(1.4-6.5)
Neutrophils % 84.9 H %
(42.2-75.2)
Lymphocytes % 10.2 L %
(20.5-51.1)
Glucose 167 H mg/dl
(70-99)
Total Bilirubin 2.8 H mg/dl
(0.2-1.3)
Alkaline Phosphatase 138 H U/L
(38-126)
12/28/24 11:03
12/28/24 11:03
Vital Signs
Initial and Last Documented VS:
Initial Vital Signs
Temp Pulse Resp BP Pulse Ox
98.4 F 75 16 189/80 96
12/28/24 10:46 12/28/24 10:46 12/28/24 10:46 12/28/24 10:46 12/28/24 10:46
Last Documented Vital Signs
Temp Pulse Resp BP Pulse Ox
98.4 F 89 15 184/78 95
12/28/24 10:46 12/28/24 15:00 12/28/24 15:00 12/28/24 13:24 12/28/24 15:00
<David Paulino, DO - Last Filed: 12/28/24 13:58>
Orders/Labs/Results
Orders:
Orders
12/28/24 Lunch
NPO
Allow oral meds: Yes
Allow clear liquids: No
12/28/24 10:50
Electrocardiogram (*1) Urgent
Reason for Study: Abdominal Pain
12/28/24 10:51
EKG- Treatment ONCE
12/28/24 11:03
Complete Blood Count/With Diff Urgent
Comprehensive Metabolic Panel Urgent
Direct Bilirubin Urgent
Comment: ADD ON
Lipase Urgent
12/28/24 11:26
CT Abd/Pel (IV only)-DH only Urgent
Comment:
Reason For Exam: epigastric pain
HYDROmorphone [Dilaudid] 0.5 mg IV NOW STA
Ondansetron Injectable [Zofran] 4 mg IV NOW STA
12/28/24 11:35
Lactic Acid Urgent
12/28/24 14:17
Acetaminophen 1000MG/100Ml [Ofirmev] 1,000 mg in 100 ml IV ONCE
Acetaminophen IV Indication:: ED Narcotic Naive Pt-ONCE
Ondansetron Injectable [Zofran] 4 mg IV NOW STA
12/28/24 14:18
Ondansetron Injectable [Zofran] 4 mg .ROUTE .STK-MED ONE
12/28/24 14:23
Add On- LAB Routine
Tests Added?: direct bilirubin
12/28/24 14:43
Admit/Transfer Patient As Directed
Co-Sign Provider:
Level of Care: Inpatient admission
Assign to:: Telemetry
Physician / Group: Lana Ramos
Diagnosis: evolving SBO
Reason for Telemetry: Chest Pain syndromes
Date to Stop Telemetry: 12/30/24
Time to Stop Telemetry: 11:00
Reason for Hospitalization: developing SBO
Expected length of stay greater than two midnights?: Yes
ELOS- Estimated Length of Stay in days: 3
I certify the patient meets the requirements for IP care: Yes
PRN Pain Medication Management As Directed
May give lesser potent ordered pain med per pt: Yes
preference::
Protocol:: Medication orders for pain may be administered in a
manner that supports deferring to patient preference
when the pt is:
- Requesting an ordered lesser potent pain medication.
Least to most potent pain medications are defined
as: acetaminophen < NSAID < tramadol < opioids
(morphine, oxycodone, hydromorphone).
- Requesting a lesser dose of the same medication IF
ORDERED.
- Requesting a less intrusive route of administration
if both routes are prescribed by the provider (PO <
IV).
12/28/24 14:50
Code Status As Directed
Resuscitation Status: Full Code
12/28/24 18:15
Acetaminophen [Tylenol] 650 mg PO Q4HPRN PRN
Enoxaparin Sodium [Lovenox] 40 mg SC QPM
HYDROmorphone [Dilaudid] 0.5 mg IV Q4HPRN PRN
Ketorolac [Toradol] 10 mg IV Q6HPRN PRN
Lactated Ringers [Lr] 1,000 ml IV 70 mls/hr
Ondansetron Injectable [Zofran] 4 mg IV Q6HPRN PRN
12/28/24 18:15
Consult Surgery [SURGICAL CONSULT] Routine
Consulting Provider: Devan Aburto
Was physician already notified: Yes
Activity As Directed
Activity Level: As Tolerated
Vital Signs As Directed
Frequency: Per unit guidelines
Pulse Ox/cont/shift [RESP] Routine
Quantity: 1
DX Deep Vein Thrombosis Video Routine
12/28/24 20:00
Pregabalin [Lyrica] 300 mg PO BID
12/28/24 22:00
Atorvastatin [Lipitor] 10 mg PO HS
Propranolol Extended Release [Inderal LA] 80 mg PO HS
12/29/24 06:00
Basic Metabolic Panel IN AM
Complete Blood Count/With Diff IN AM
Magnesium IN AM
Levothyroxine [Synthroid] 50 mcg PO DAILY @ 0600
12/30/24 11:00
DC Protocol for Telemetry ONCE
Abnormal Lab Results
12/28/24
11:03
WBC 13.3 H 10^3/uL
(4.8-10.8)
MPV 11.1 H fL
(7.4-10.4)
Abs Immat Gran (auto) 0.1 H 10^3/uL
(0-0.05)
Absolute Neuts (auto) 11.3 H 10^3/uL
(1.4-6.5)
Neutrophils % 84.9 H %
(42.2-75.2)
Lymphocytes % 10.2 L %
(20.5-51.1)
Glucose 167 H mg/dl
(70-99)
Total Bilirubin 2.8 H mg/dl
(0.2-1.3)
Alkaline Phosphatase 138 H U/L
(38-126)
12/28/24 11:03
12/28/24 11:03
Vital Signs
Initial and Last Documented VS:
Initial Vital Signs
Temp Pulse Resp BP Pulse Ox
98.4 F 75 16 189/80 96
12/28/24 10:46 12/28/24 10:46 12/28/24 10:46 12/28/24 10:46 12/28/24 10:46
Last Documented Vital Signs
Temp Pulse Resp BP Pulse Ox
98.4 F 89 15 184/78 95
12/28/24 10:46 12/28/24 15:00 12/28/24 15:00 12/28/24 13:24 12/28/24 15:00
<Henrik Giraldo PA-C - Last Filed: 12/28/24 18:47>
MDM/Problems Addressed
MDM/Problems Addressed:
Patient's imaging is highly suspicious for developing small bowel obstruction. She will be admitted to the medicine service for further management
<Henrik Giraldo PA-C - Last Filed: 12/28/24 18:47>
*Pulse Oximetry
SaO2: 96
Oxygen Mode of Delivery: Room air
Patient hypoxic: no
*Critical Care Note
Total Time (30-74mins, 75-104mins- exclusive of procedures): Not Applicable
ED Attending Note
<Henrik Giraldo PA-C - Last Filed: 12/28/24 18:47>
-
Portions of this chart may have been created with voice recognition software.� Occasional wrong word or��sound alike� substitutions may have occurred due to the inherent limitations of voice recognition software.
<David Paulino, - Last Filed: 12/28/24 13:58>
ED Attending Note
Patient seen and examined by attending physician: Yes
ED Attending Note:
I have reviewed and agree with history treatment plan by Luis Enrique Giraldo PA-C. My exam revealed 61-year-old female with diffuse tenderness worse periumbilical. CT scan concerning for possible bowel obstruction. Plan for admission. Pending read of CT
scan.
Discharge Plan
Departure
Patient Disposition: Admit
Date of Disposition: 12/28/24
Time of Disposition: 14:16
Admit to: Med/Surg
Presentation/result/management discussed w/ accepting MD/DO: Hospitalist
Discharge Problem:
Small bowel obstruction
Interventions
Interventions:
*Risk Screen - Suicide Last Done: 12/28/24 10:51
*General Assessment Last Done: 12/28/24 10:51
*Neglect/Abuse Screening Last Done: 12/28/24 10:51
*ED- Fall Risk Assessment Last Done: 12/28/24 12:00
ED-Psjhrz-Jyrovkpfoj Assessment Last Done: 12/28/24 11:09
[2024-12-28] MEDS: DILAUDID 0.5 MG IV (11:30)
[2024-12-28] MEDS: ZOFRAN 4 MG IV ×3 (11:30→21:59)
[2024-12-28 13:24] VITALS: BP 184/78
[2024-12-28] MEDS: OFIRMEV 100 IV (14:20)
--- NOTE | 2024-12-28 14:20 | HPS.HSE ---
Family Physician
-
Family Physician: Kelsey Braswell, DO
Chief Complaint
-
abdominal pain
History of Present Illness
Ms. Aundrea Asher is a 69 yo woman with hx mild intermittent asthma, fibromyalgia, morbid obesity, obesity hypoventilation syndrome on oxygen in evenings, hemicolectomy 2013, presents to the ER for sudden onset abdominal pain.
Patient states pain started yesterday evening and is colicky in nature. + nausea, no vomiting. No fevers/chills.
She denies chest pain or shortness of breath. No LE swelling.
Medical History
Past Medical History
Past Medical History: Reports Other
Additional Past Medical History:
Morbid Obesity
Fibromyalgia
Psoriasis
Lumbar Spinal Stenosis
Diverticular Disease
IBS
Mild Intermittent Asthma
Hypothyroidism
Endometriosis
Gilbert's Syndrome
Past Surgical History: Reports Other
Additional Past Surgical History:
SWETHA
Ex Lap x several
Left Hemicolectomy
Cholecystectomy
Social History
Tobacco: Non-smoker
Alcohol: None
Family History
Family History: Other (Mother: CAD, Clear Cell Cancer Father: CAD Sister: Valvular Heart Disease)
Allergies / Home Medications
Allergies reflects when Allergies were last updated in [employer].
Home Medications with original date entered in [employer]
Allergy/Medication List:
Allergies
Allergy/AdvReac Type Severity Reaction Status Date / Time
demeclocycline Allergy Hives Verified 12/28/24 10:46
metoclopramide Allergy Hives Verified 12/28/24 10:46
tramadol Allergy Hives Verified 12/28/24 10:46
Home Medications
atorvastatin 10 mg tablet 10 mg PO HS 05/13/23
levothyroxine 50 mcg tablet 50 mcg PO DAILY 05/13/23
loperamide 2 mg capsule 2 mg PO TIDPRN PRN diarrhea 05/13/23
pregabalin 300 mg capsule 300 mg PO BID 05/13/23
propranolol 80 mg capsule,24 hr,extended release 80 mg PO HS 05/13/23
Review of Systems
-
History Source: Patient
A 12 point ROS was completed and negative except as noted: Yes
Physical Exam
Vital Signs
Vital Signs
Temp Pulse Resp BP Pulse Ox
98.4 F 80 26 189/80 96
12/28/24 10:46 12/28/24 11:00 12/28/24 11:00 12/28/24 10:46 12/28/24 11:27
Physical Exam
General: No Apparent Distress
HEENT: PERRLA
Respiratory: Clear; No Wheezes
Cardiac: S1/S2 and Regular Rhythm
GI: Other (mid-epigastric tenderness, no rebound or guarding )
Musculoskeletal: No Edema
Skin: Warm and Dry; No Rash
Neuro: AO x 3
Psych: Calm
Laboratory Results
-
12/28/24 11:03
12/28/24 11:03
Laboratory Results
Lactic Acid 1.5 mmol/L (0.7-2.0) 12/28/24 11:35
Total Bilirubin 2.8 mg/dl (0.2-1.3) H 12/28/24 11:03
AST 25 U/L (14-36) 12/28/24 11:03
ALT 24 U/L (0-35) 12/28/24 11:03
Alkaline Phosphatase 138 U/L (38-126) H 12/28/24 11:03
Lipase 42 U/L (23-300) 12/28/24 11:03
Data Reviewed
-
Diagnostic Radiology: Report Reviewed by me
Lab Data: Labs Reviewed by me
Impression/Plan
-
Ms. Aundrea Asher is a 69 yo woman with hx mild intermittent asthma, fibromyalgia, morbid obesity presents to the ER for sudden onset abdominal pain.
Triage VS: T 98.4, P 75, RR 16, BP 189/80, SpO2 96%
LABS: WBC 13.3, Hg 15.2, PLT 211, Na 137, K+ 3.8, Cl 101, CO2 30, BUN 13, Cr 0.6, Glucose 167, Lactate 1.5
CT A/P
IMPRESSION: Several mildly dilated loops of small bowel in the mid lower abdomen possibly adherent to the anterior abdominal wall. Developing obstruction should be considered. Limited evaluation without oral contrast. Dilatation new. Previous bowel
containing hernia in this region no longer present.
Mild free fluid in the right paracolic gutter. New. Probably reactive. However, appendix is not visualized. Acute appendicitis cannot be excluded. Clinical correlation recommended..
Small left parapelvic renal cysts. Increased in size and number
Mild bibasilar atelectasis
MAR: IV Zofran x 2, Tylenol, IV Dilaudid
Developing SBO
-admit to telemetry
-NPO except meds
-NS @ 70
-IV Dilaudid PRN severe pain; Toradol PRN moderate
-IV Zofran PTN
-GS consult
Morbid Obesity
Hx Obesity Hypoventilation Syndrome
-patient is on O2 at night
-continuous pulse ox while receiving PRN Dilaudid
HLD - ANIMAL SURGEON Statin
Hypothyroidism - ANIMAL SURGEON Synthroid
HTN - ANIMAL SURGEON Propranolol
DVT PPx Lovenox subQ
FULL CODE
--- NOTE | 2024-12-28 16:14 | EDCM ---
CM reviewed chart and met with pt bedside in ED. Lives with her daughter, 2 story home, no VALERIANO. Pt has first floor bedroom and full bath.
Independent in ADLs, personal care and ambulation, uses cane, also has walker. Has O2 supplied by [employer], uses 2-3L at night and PRN.
Confirms prescription coverage.
No hx VN or SNF.
PCP: Kelsey Braswell
Pharmacy: [facility]
CM will continue to follow for all discharge planning needs.
--- NOTE | 2024-12-28 16:48 | CON.GS ---
Addendum entered and electronically signed by Devan Aburto MD 12/28/24 17:24:
Patient seen and examined with surgical HOME CARE LIAISON. Agree with documented consultation note with additions noted here.
HPI: 69-year-old female with history of numerous prior abdominal surgeries including , laparoscopy for endometriosis, open WSETHA/BSO, cholecystectomy, appendectomy, open sigmoidectomy. She has also had a previous episode of small bowel
obstruction which resolved with medical management.
She was in her usual baseline state of health until yesterday evening when about an hour after eating dinner she began developing abdominal pain and nausea and anorexia. She has not had any vomiting. She still feels a bit bloated and distended.
She had a regular bowel movement yesterday. No bowel movements today. She has not been passing much flatus. No worsening pain or nausea since presenting to the emergency department but she did get 2 doses of Zofran.
AFVSS
NAD AAO x 3; daughter at bedside
ABD: Soft, obese, mildly distended but not tensely distended. Some tympany on percussion. No percussion tenderness. Tenderness palpation centrally. No rebound rigidity or guarding. Multiple abdominal surgical scars.
CT abdomen/pelvis imaging personally reviewed and interpreted as well as radiologist report. No oral contrast administered. No significant gastric distention. Mildly distended central small bowel loops up to 3 cm. Distal decompressed small
bowel. No immediate abrupt transition point but it does appear to be in the region of the central anterior abdomen adjacent to the midline laparotomy surgical scar. No evidence of closed-loop obstruction. No pneumatosis. No free air. No
organizing fluid collections.
Assessment/plan: 69-year-old female presenting with small bowel obstruction likely secondary to adhesions in the setting of numerous past abdominal surgeries as outlined in the HPI.
No clinical nor radiographic signs of immediate bowel compromise or threat
No severe small bowel distention and no gastric distention. Will hold on NG tube placement for now but monitor for signs of persistent or high-grade obstruction in which case an NG tube would be placed.
N.p.o. IV fluid
Analgesics/antiemetics if needed
Will follow
Discussed and reviewed surgical treatment plan/recommendations with patient and her daughter at bedside.
Original Note:
Consultation
-
Date/Time Consultation Performed: 12/28/245
Medical History
-
Chief Complaint: abdominal pain
History of Present Illness:
Ms Asher is a 69 yo female with a h/o , endometriosis with prior laparoscopies, SWETHA/BSO, SBO in 2000 which resolved without surgery, diverticulitis s/p open left hemicolectomy in 2013 (in [place]), cholecystectomy, and appendectomy who
presents with mid abdominal pain which began last night about an hour after eating dinner. She notes the pain persisted and worsened with associated nausea and dry heaving causing her to present to the ED for evaluation. Her last BM was yesterday
and she notes she passed flatus last night but none today. She feels a little bloated but not severely so. Nausea has improved s/p receiving zofran in the ED.
Past Medical History
Past Medical History: Hypercholesterolemia and Other (IBS, fibromyalgia, morbid obesity, ciara, obesity hypoventilation syndrome on home O2 at [facility], fibromyalgia, chronic back pain with lumbar stenosis, Gilbert's, hep c s/p treatment, endometriosis)
Past Surgical History: Appendectomy, Bowel Resection (open left hemicolectomy), Cholecystectomy, and Gynecological (dx lap x3, SWETHA/BSO)
Social History
Tobacco: Non-Smoker
Alcohol: None
Family History
Family History: Reviewed & Not Pertinent
Allergies / Home Medications
Allergy/AdvReac Type Severity Reaction Status Date / Time
demeclocycline Allergy Hives Verified 12/28/24 10:46
metoclopramide Allergy Hives Verified 12/28/24 10:46
tramadol Allergy Hives Verified 12/28/24 10:46
�Medication �Instructions �Recorded �Confirmed �Type
atorvastatin 10 mg tablet 10 mg PO HS 05/13/23 12/28/24 History
levothyroxine 50 mcg tablet 50 mcg PO DAILY 05/13/23 12/28/24 History
loperamide 2 mg capsule 2 mg PO TIDPRN PRN diarrhea 05/13/23 12/28/24 History
pregabalin 300 mg capsule 300 mg PO BID 05/13/23 12/28/24 History
propranolol 80 mg capsule,24 80 mg PO HS 05/13/23 12/28/24 History
hr,extended release
Review of Systems
-
History Source: Patient and Family (daughter at bedside to assist with history)
All other systems: Negative unless noted
A 10 point review of systems was completed, and was negative except as per HPI.
Physical Exam
Vital Signs
Temp Pulse Resp BP Pulse Ox
98.4 F 89 15 184/78 95
12/28/24 10:46 12/28/24 15:00 12/28/24 15:00 12/28/24 13:24 12/28/24 15:00
12/27/24 12/28/24 12/29/24
06:59 06:59 06:59
Actual Weight 130.4 kg
Body Mass Index (BMI) 49.4
Lab Results
12/28/24 11:03
12/28/24 11:03
WBC 13.3 10^3/uL (4.8-10.8) H 12/28/24 11:03
Hgb 15.2 g/dL (12.0-16.0) 12/28/24 11:03
Hct 44.7 % (37.0-47.0) 12/28/24 11:03
Plt Count 211 10^3/uL (130-400) 12/28/24 11:03
Abs Immat Gran (auto) 0.1 10^3/uL (0-0.05) H 12/28/24 11:03
Neutrophils % 84.9 % (42.2-75.2) H 12/28/24 11:03
Physical Exam
General: No Apparent Distress
HEENT: Normocephalic and Moist Mucous Membranes
Respiratory: Non Labored Respirations
GI: Soft, Tender (mid abdomen around/above umbilicus) and Obese
Skin: Warm and Dry
Neuro: Awake, Alert and AO x 3
Psych: Calm
Data Reviewed
-
CT Scan: Image Personally Visualized and interpreted, Report Reviewed by me, Discussed with Physician, Discussed with Patient and Discussed with Family
Labs: Labs Reviewed by me, Discussed with Physician, Discussed with Patient and Discussed with Family
Assessment / Plan
-
69 yo female with a h/o multiple abdominal surgeries presenting with nausea and abdominal pain which began one hour after eating dinner last night and persisted/worsened. CT imaging consistent with early adhesive SBO with bowel dilatation noted,
likely secondary to adhesions. Lack of oral contrast limits study. No evidence of bowel threat or compromise. No pneumatosis. Mild tenderness to mid abdomen on exam. Feeling better s/p antiemetics. No flatus/bm's since yesterday. Mild leukocytosis
present. Bilirubin elevated but stable from prior (h/o Gilbert's). Afebrile, VSS.
Plan:
NPO for bowel rest
Hold off on NGT for now unless begins vomiting or has worsening nausea/pain
IVF as per primary team
Analgesics/antiemetics
No plans for emergent surgery, will follow for improvement with bowel rest/supportive measures
[2024-12-28] MEDS: LR 1000 IV (18:31)
[2024-12-28] MEDS: LOVENOX 40 MG SC (19:08)
[2024-12-28] MEDS: TORADOL 10 MG IV (19:08)
[2024-12-28 19:40] VITALS: BP 149/80; BMI 46.9
--- NOTE | 2024-12-28 19:40 | PTCARENOTE ---
Pt arrived to unit via stretcher from ED. Pt ambulated to room using single point cane and assist of 1 staff member. LR @ 70 ml/hr and 2L O2 maintained. Plan of care ongoing.
[2024-12-28] MEDS: LYRICA PO (22:02)
[2024-12-28] MEDS: INDERAL LA PO (22:02)
[2024-12-28] MEDS: LIPITOR PO (22:02)
[2024-12-28 23:00] VITALS: BP 156/68
[2024-12-29] MEDS: DILAUDID 0.5 MG IV ×3 (00:03→15:44)
[2024-12-29] MEDS: PHENERGAN 50.5 MG IV (00:47)
[2024-12-29 03:00] VITALS: BP 118/57
[2024-12-29] MEDS: SYNTHROID PO (05:31)
[2024-12-29 06:19] LABS: Hematocrit 41.3 % (37.0-47.0); Hemoglobin 13.5 g/dL (12.0-16.0); Mean Corp Hgb Conc. 32.7 g/dL (33.0-37.0); Mean Corpuscular Volume 92.0 fL (81.0-99.0); Nucleated Red Blood Cells % 0 %; Platelet Count 196 10^3/uL (130-400); Red Cell Dist. Width 13.0 % (11.5-14.5)
[2024-12-29] MEDS: ZOFRAN 4 MG IV (06:21)
[2024-12-29 06:48] LABS: Blood Urea Nitrogen 18 mg/dl (7-17); Calcium 9.4 mg/dl (8.4-10.2); Carbon Dioxide 31 mmol/L (22-30); Chloride 104 mmol/L (98-107); Estimated Creatinine Clearance 89 ml/min; Glucose 123 mg/dl (70-99); Magnesium 1.8 mg/dl (1.6-2.3); Potassium 3.9 mmol/L (3.5-5.1); Sodium 139 mmol/L (135-145); eGFR > 60.00
[2024-12-29 07:00] VITALS: BP 144/54
[2024-12-29] MEDS: LYRICA PO ×2 (07:55→22:16)
[2024-12-29 09:18] LABS: ALT (SGPT) 22 U/L (0-35); AST (SGOT) 27 U/L (14-36); Albumin 3.6 g/dl (3.5-5.0); Alkaline Phosphatase 93 U/L (38-126); Total Protein 6.4 g/dl (6.3-8.2)
[2024-12-29] MEDS: LR 1000 IV (09:46)
--- NOTE | 2024-12-29 10:51 | W.PN.HOSP.TC ---
Today's Communication/Plan
-
prn Phenergan
SBFT
NPO/IVF
follow GS recs
Assessment / Plan
Assessment / Plan
Assessment:
partial SBO
- suspected etiology is adhesional in setting of prior multiple abdominal surgeries
- CT: Several mildly dilated loops of small bowel in the mid lower abdomen possibly adherent to the anterior abdominal wall. Developing obstruction should be considered
- NPO except meds
- IVF
- pain control
- antiemetics; patient found best relief with Phenergan
- GS following
- for SBFT today
Morbid Obesity
Hx Obesity Hypoventilation Syndrome
- patient is on O2 at night
- continuous pulse ox while receiving PRN Dilaudid
HLD - Statin
Hypothyroidism - Synthroid
HTN - MANAGER ER Propranolol
DVT ppx: Lovenox
Code: Full
Anticipated Discharge: > 48 hours
Subjective/Interval History
-
Date of Service: December 29, 2024
reports abd discomfort 'when prodded'
mild nausea
Objective Data
-
Labs:
Laboratory Results
12/29/24
05:46
WBC 10.8
Hgb 13.5
Hct 41.3
Plt Count 196
Sodium 139
Potassium 3.9
Chloride 104
Carbon Dioxide 31 H
BUN 18 H
Creatinine 0.8
Glucose 123 H
Calcium 9.4
Total Bilirubin 3.3 H
AST 27
ALT 22
Alkaline Phosphatase 93
Vital Signs:
Vital Signs
Temp Pulse Resp BP Pulse Ox
98.2 F 76 20 144/54 96
12/29/24 07:00 12/29/24 07:00 12/29/24 07:00 12/29/24 07:00 12/29/24 07:00
Physical Exam
-
General: No Apparent Distress and Morbidly Obese
HEENT: Normocephalic and Atraumatic
Respiratory: Negative Wheezes
Cardiac: Regular Rhythm and S1/S2
GI: Tender and Distended
Genito-urinary: No Costovertebral Tender
Neuro: AO x 3
Psych: Calm
Data Reviewed
-
Total Time Spent with Patient (in minutes): 44
Labs: Labs Reviewed by me
[2024-12-29 11:00] VITALS: BP 144/63
--- NOTE | 2024-12-29 11:24 | W.PN.GS2 ---
Addendum entered and electronically signed by Florencio Arriaga MD 12/29/24 13:05:
I saw and examined the patient.
The DOUBLE END TENON OPERATOR's note was reviewed and I agree with the note.
Comment: Remains tender on exam at the mid abdomen in the location corresponding to likely transition point on CT, AFVSS, leukocytosis improved, denies flatus/BM. Plan for SBFT today.
Original Note:
Today's Communication / Plan
-
SBFT
Assessment / Plan
-
69-year-old female presenting with small bowel obstruction likely secondary to adhesions in the setting of numerous past abdominal surgeries
AFVSS
Leukocytosis present on admission is trending down
Intermittent nausea, no passage of flatus
Plan:
Check SBFT study to further evaluate
Continue NPO
Will hold on NG tube placement for now but monitor for signs of persistent or high-grade obstruction in which case an NG tube would be placed.
Continue IV fluid
Analgesics/antiemetics if needed
Will follow
Subjective Data
-
Date of Service: December 29, 2024
Pt seen and examined at bedside with Dr Arriaga. Denies vomiting but with intermittent nausea. Not passing gas or stools. Supraumbilical abdominal pain persists.
Objective Data
-
Intake and Output
12/28/24 12/29/24 12/30/24
06:59 06:59 06:59
Other:
Number of approximated LARGE 2
amounts of urine
Vital Signs
Temp Pulse Resp BP Pulse Ox
98.2 F 76 20 144/54 96
12/29/24 07:00 12/29/24 07:00 12/29/24 07:00 12/29/24 07:00 12/29/24 07:00
Lab Results
12/29/24 05:46
12/29/24 05:46
Calcium 9.4 mg/dl (8.4-10.2) 12/29/24 05:46
Magnesium 1.8 mg/dl (1.6-2.3) 12/29/24 05:46
Total Bilirubin 3.3 mg/dl (0.2-1.3) H 12/29/24 05:46
Direct Bilirubin 0.4 mg/dl (0.0-0.4) 12/28/24 11:03
AST 27 U/L (14-36) 12/29/24 05:46
ALT 22 U/L (0-35) 12/29/24 05:46
Alkaline Phosphatase 93 U/L (38-126) 12/29/24 05:46
Total Protein 6.4 g/dl (6.3-8.2) 12/29/24 05:46
Albumin 3.6 g/dl (3.5-5.0) 12/29/24 05:46
Physical Exam
-
NAD
ABD soft, mildly distended, tender to upper abd predominantly supraumbilical
[2024-12-29] MEDS: TORADOL 10 MG IV (13:12)
[2024-12-29] MEDS: PHENERGAN 25 MG IM (13:30)
[2024-12-29 15:25] VITALS: BP 158/61
--- NOTE | 2024-12-29 15:57 | VNURNOTE ---
Home Health Liaison met with patient at bedside to discuss [facility] nurse/therapy, visits, schedule and homebound status. Patient is agreeable and understands that visits at home will be 2-3 x per week to assess and teach medical management. Patient
is aware that [facility] will contact them for start of care in 1-2 days after discharge from . Provided contact number for [facility].
[facility] referral completed in [facility].
--- NOTE | 2024-12-29 16:12 | CM ---
Spoke with patient in room .
Pt has home oxygen with [employer].
Offered VN she requested [facility]
Emperatriz S [facility] Liaison aware of referral.
Dgt Mariely will drive her home.
PLAN Home with [facility]
[2024-12-29] MEDS: LOVENOX 40 MG SC (17:21)
[2024-12-29 19:00] VITALS: BP 171/61
[2024-12-29] MEDS: INDERAL LA 80 MG PO (22:15)
[2024-12-29] MEDS: LIPITOR PO (22:16)
[2024-12-29 23:00] VITALS: BP 138/63
[2024-12-30] MEDS: DILAUDID 0.5 MG IV (00:12)
[2024-12-30] MEDS: PHENERGAN 50.5 MG IV ×3 (00:59→23:39)
[2024-12-30] MEDS: LR 1000 IV ×2 (01:59→17:56)
[2024-12-30 03:00] VITALS: BP 127/61
[2024-12-30] MEDS: SYNTHROID 50 MCG PO (05:43)
[2024-12-30 06:06] LABS: Hematocrit 37.5 % (37.0-47.0); Hemoglobin 11.9 g/dL (12.0-16.0); Mean Corp Hgb Conc. 31.7 g/dL (33.0-37.0); Mean Corpuscular Volume 93.1 fL (81.0-99.0); Red Cell Dist. Width 13.1 % (11.5-14.5)
[2024-12-30 06:20] LABS: ALT (SGPT) 28 U/L (0-35); AST (SGOT) 33 U/L (14-36); Albumin 3.2 g/dl (3.5-5.0); Alkaline Phosphatase 83 U/L (38-126); Blood Urea Nitrogen 21 mg/dl (7-17); Calcium 8.5 mg/dl (8.4-10.2); Carbon Dioxide 31 mmol/L (22-30); Chloride 106 mmol/L (98-107); Estimated Creatinine Clearance 119 ml/min; Glucose 89 mg/dl (70-99); Magnesium 1.9 mg/dl (1.6-2.3); Potassium 4.0 mmol/L (3.5-5.1); Sodium 139 mmol/L (135-145); Total Protein 5.8 g/dl (6.3-8.2); eGFR > 60.00
[2024-12-30 07:07] LABS: Platelet Count 152 10^3/uL (130-400)
[2024-12-30 08:39] VITALS: BP 135/60
[2024-12-30] MEDS: LYRICA 300 MG PO ×2 (08:48→21:24)
[2024-12-30] MEDS: TORADOL 10 MG IV ×2 (08:50→23:24)
--- NOTE | 2024-12-30 10:06 | W.PN.HOSP.TC ---
Today's Communication/Plan
-
await GS recs; possibly CLD trial
Assessment / Plan
Assessment / Plan
Assessment:
partial SBO
- suspected etiology is adhesional in setting of prior multiple abdominal surgeries
- CT: Several mildly dilated loops of small bowel in the mid lower abdomen possibly adherent to the anterior abdominal wall. Developing obstruction should be considered
- NPO except meds
- IVF
- pain control
- antiemetics; patient found best relief with Phenergan
- f/u AXR 12/30: No grossly dilated bowel loops. There is a small amount of gas seen within nondistended small and large bowel loops. There are surgical clips from prior cholecystectomy. Anastomotic suture material in the central pelvis. Subtle
increased attenuation is noted in the region of the renal collecting system, likely residual contrast material within the collecting system related to CT examination performed the previous day.
- GS following
Morbid Obesity
Hx Obesity Hypoventilation Syndrome
- patient is on O2 at night
- continuous pulse ox while receiving PRN Dilaudid
HLD - Statin
Hypothyroidism - Synthroid
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
DVT ppx: Lovenox
Code: Full
Anticipated Discharge: 24 - 48 hours
Subjective/Interval History
-
Date of Service: December 30, 2024
reports improving abd pain, some nausea primarily with pain (or pain meds)
reports + flatus, moderate BM
no fever/chills
Objective Data
-
Labs:
Laboratory Results
12/30/24
05:39
WBC 6.5
Hgb 11.9 L
Hct 37.5
Plt Count 152 D
Sodium 139
Potassium 4.0
Chloride 106
Carbon Dioxide 31 H
BUN 21 H
Creatinine 0.6
Glucose 89
Calcium 8.5
Total Bilirubin 3.3 H
AST 33
ALT 28
Alkaline Phosphatase 83
Vital Signs:
Vital Signs
Temp Pulse Resp BP Pulse Ox
98.5 F 60 16 135/60 98
12/30/24 08:39 12/30/24 08:39 12/30/24 08:39 12/30/24 08:39 12/30/24 08:39
Physical Exam
-
General: No Apparent Distress
HEENT: Normocephalic and Atraumatic
Respiratory: Negative Wheezes
Cardiac: Regular Rhythm and S1/S2
Genito-urinary: No Costovertebral Tender
Neuro: AO x 3
Psych: Calm
Data Reviewed
-
Total Time Spent with Patient (in minutes): 42
Labs: Labs Reviewed by me
[2024-12-30] MEDS: OCEAN, SALINE MIST 2 SPRAYS NASAL (11:20)
[2024-12-30 12:09] VITALS: BP 125/52
--- NOTE | 2024-12-30 13:52 | W.PN.GS2 ---
Addendum entered and electronically signed by Florencio Arriaga MD 12/30/24 15:55:
Daughter updated by phone
Addendum entered and electronically signed by Florencio Arriaga MD 12/30/24 15:52:
I saw and examined the patient.
The Audience Coordinator's note was reviewed and I agree with the note.
Comment: incrementally improved, passing flatus and had a BM, denies n/v, unable to marek PO contrast yesterday, refused NGT to allow PO contrast study, will trial cld
Original Note:
Today's Communication / Plan
-
Trial of clears
Assessment / Plan
-
69-year-old female presenting with small bowel obstruction likely secondary to adhesions in the setting of numerous past abdominal surgeries
AFVSS
Leukocytosis present on admission is trending down
Intermittent nausea, but no vomiting. Able to pass a little flatus with small bm last noc
Unable to tolerate PO contrast yesterday d/t nausea, declined study
Plan:
Trial of clears
Continue IV fluid
Analgesics/antiemetics if needed
Will follow
Subjective Data
-
Date of Service: December 30, 2024
Pt seen and examined at bedside with Dr. Arriaga. Denies vomiting but with intermittent nausea. Was able to pass a formed BM yesterday with some intermittent small amounts of flatus.
Objective Data
-
Intake and Output
12/29/24 12/30/24 12/31/24
06:59 06:59 06:59
Other:
Number of approximated MODERATE 2
amounts of urine
Number of approximated LARGE 2
amounts of urine
Vital Signs
Temp Pulse Resp BP Pulse Ox
97.6 F 57 16 125/52 98
12/30/24 12:09 12/30/24 12:12/30/24 12:12/30/24 12:09 12/30/24 12:09
Lab Results
12/30/24 05:39
12/30/24 05:39
Calcium 8.5 mg/dl (8.4-10.2) 12/30/24 05:39
Magnesium 1.9 mg/dl (1.6-2.3) 12/30/24 05:39
Total Bilirubin 3.3 mg/dl (0.2-1.3) H 12/30/24 05:39
Direct Bilirubin 0.4 mg/dl (0.0-0.4) 12/28/24 11:03
AST 33 U/L (14-36) 12/30/24 05:39
ALT 28 U/L (0-35) 12/30/24 05:39
Alkaline Phosphatase 83 U/L (38-126) 12/30/24 05:39
Total Protein 5.8 g/dl (6.3-8.2) L 12/30/24 05:39
Albumin 3.2 g/dl (3.5-5.0) L 12/30/24 05:39
Physical Exam
-
NAD
ABD soft, mildly distended, tender to upper abd predominantly supraumbilical
--- NOTE | 2024-12-30 16:23 | PTCARENOTE ---
Toradol effective for abd pain. not sure if pt having intermittent, nausea with pain or pain medications after questioning her. Phenergan effective for c/o nausea. abdomen mildly distended, tender to upper abd more so in supraumbilical area,
transferring with assist x1, vss, will continue to monitor.
[2024-12-30 16:30] VITALS: BP 160/70
[2024-12-30] MEDS: LOVENOX 40 MG SC (17:05)
[2024-12-30 19:00] VITALS: BP 125/47
[2024-12-30] MEDS: INDERAL LA 80 MG PO (21:25)
[2024-12-30] MEDS: LIPITOR 10 MG PO (21:25)
[2024-12-30 21:26] VITALS: BP 147/67
[2024-12-31] MEDS: DILAUDID 0.5 MG IV ×2 (01:30→23:00)
[2024-12-31] MEDS: SYNTHROID 50 MCG PO (06:05)
[2024-12-31] MEDS: TORADOL 10 MG IV ×2 (06:21→18:22)
[2024-12-31 07:17] LABS: Hematocrit 38.1 % (37.0-47.0); Hemoglobin 12.0 g/dL (12.0-16.0); Mean Corp Hgb Conc. 31.5 g/dL (33.0-37.0); Mean Corpuscular Volume 94.1 fL (81.0-99.0); Platelet Count 163 10^3/uL (130-400); Red Cell Dist. Width 12.8 % (11.5-14.5)
[2024-12-31] MEDS: LYRICA 300 MG PO ×2 (07:47→21:11)
[2024-12-31 08:16] VITALS: BP 138/65
[2024-12-31 08:19] LABS: ALT (SGPT) 34 U/L (0-35); AST (SGOT) 41 U/L (14-36); Albumin 3.3 g/dl (3.5-5.0); Alkaline Phosphatase 90 U/L (38-126); Blood Urea Nitrogen 19 mg/dl (7-17); Calcium 8.5 mg/dl (8.4-10.2); Carbon Dioxide 33 mmol/L (22-30); Chloride 104 mmol/L (98-107); Estimated Creatinine Clearance 102 ml/min; Glucose 99 mg/dl (70-99); Potassium 4.0 mmol/L (3.5-5.1); Sodium 139 mmol/L (135-145); Total Protein 6.0 g/dl (6.3-8.2); eGFR > 60.00
--- NOTE | 2024-12-31 09:13 | W.PN.HOSP.TC ---
Today's Communication/Plan
-
possibly FLD diet advancement, follow GS recs
Assessment / Plan
Assessment / Plan
Assessment:
partial SBO
- suspected etiology is adhesional in setting of prior multiple abdominal surgeries
- CT: Several mildly dilated loops of small bowel in the mid lower abdomen possibly adherent to the anterior abdominal wall. Developing obstruction should be considered
- f/u AXR 12/30: No grossly dilated bowel loops. There is a small amount of gas seen within nondistended small and large bowel loops. There are surgical clips from prior cholecystectomy. Anastomotic suture material in the central pelvis. Subtle
increased attenuation is noted in the region of the renal collecting system, likely residual contrast material within the collecting system related to CT examination performed the previous day.
- diet: clears
- cap IVF
- pain control
- antiemetics; patient found best relief with Phenergan
- GS following
Morbid Obesity
Hx Obesity Hypoventilation Syndrome
- patient is on O2 at night
- continuous pulse ox while receiving PRN Dilaudid
HLD - Statin
Hypothyroidism - Synthroid
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
DVT ppx: Lovenox
Code: Full
Anticipated Discharge: Within 24 hours
Subjective/Interval History
-
Date of Service: December 31, 2024
reports less abdominal discomfort
no nausea or vomiting, passing flatus and BMs
tolerating clears
Objective Data
-
Labs:
Laboratory Results
12/31/24
07:10
WBC 5.4
Hgb 12.0
Hct 38.1
Plt Count 163
Sodium 139
Potassium 4.0
Chloride 104
Carbon Dioxide 33 H
BUN 19 H
Creatinine 0.7
Glucose 99
Calcium 8.5
Total Bilirubin 2.7 H
AST 41 H
ALT 34
Alkaline Phosphatase 90
Vital Signs:
Vital Signs
Temp Pulse Resp BP Pulse Ox
98.0 F 51 20 138/65 97
12/31/24 08:16 12/31/24 08:16 12/31/24 08:16 12/31/24 08:16 12/31/24 08:16
I&O
12/30/24 12/31/24 01/01/25
06:59 06:59 06:59
Intake Total 1850.5 / 0.5
Balance 1850.5 / 0.5
Physical Exam
-
General: No Apparent Distress and Morbidly Obese
HEENT: Normocephalic and Atraumatic
Respiratory: Negative Wheezes
Cardiac: Regular Rhythm and S1/S2
GI: Nondistended and Tender (mildly)
Musculoskeletal: No Edema
Neuro: AO x 3
Psych: Calm
Data Reviewed
-
Total Time Spent with Patient (in minutes): 42
Labs: Labs Reviewed by me
[2024-12-31] MEDS: LR IV (09:45)
[2024-12-31 10:19] VITALS: BP 127/53; PULSE 50; PULSE 53; O2SAT 94
--- NOTE | 2024-12-31 15:28 | W.PN.GS2 ---
Addendum entered and electronically signed by Florencio Arriaga MD 12/31/24 18:22:
I saw and examined the patient.
The Manager Printing's note was reviewed and I agree with the note.
Comment: Improving, passing flatus and BMs, denies n/v, marek CLD, belly soft, improved, mild ttp to mid abdomen, plan: adv to fld
Original Note:
Today's Communication / Plan
-
full liquids
Assessment / Plan
-
69-year-old female presenting with small bowel obstruction likely secondary to adhesions in the setting of numerous past abdominal surgeries
AFVSS
Leukocytosis present on admission, now resolved
No n/v. passing flatus/stools
Plan:
Advance to FLD
Analgesics/antiemetics if needed
Medical management as per primary team
Will follow
Subjective Data
-
Date of Service: December 31, 2024
Pt seen at bedside with Dr. Arriaga, daughter present. Report passing several stools and flatus. Feeling a bit better. Tolerating clears.
Objective Data
-
Intake and Output
12/30/24 12/31/24 01/01/25
06:59 06:59 06:59
Intake Total 1850.5 / 1850.5
Balance 1850.5 / 1850.5
Intake:
Oral fluids 960 / 960
IV fluids (Total) 840 / 840
IV piggybacks 50.5 / 50.5
Other:
Number of approximated MODERATE 2 3
amounts of urine
Number of approximated LARGE 2
amounts of urine
Number of unmeasured liquid
stools
Rectum 2
Vital Signs
Temp Pulse Resp BP Pulse Ox
98.0 F 51 20 138/65 95
12/31/24 08:16 12/31/24 08:16 12/31/24 08:16 12/31/24 08:16 12/31/24 13:21
Lab Results
12/31/24 07:10
12/31/24 07:10
Calcium 8.5 mg/dl (8.4-10.2) 12/31/24 07:10
Magnesium 1.9 mg/dl (1.6-2.3) 12/30/24 05:39
Total Bilirubin 2.7 mg/dl (0.2-1.3) H 12/31/24 07:10
Direct Bilirubin 0.4 mg/dl (0.0-0.4) 12/28/24 11:03
AST 41 U/L (14-36) H 12/31/24 07:10
ALT 34 U/L (0-35) 12/31/24 07:10
Alkaline Phosphatase 90 U/L (38-126) 12/31/24 07:10
Total Protein 6.0 g/dl (6.3-8.2) L 12/31/24 07:10
Albumin 3.3 g/dl (3.5-5.0) L 12/31/24 07:10
Physical Exam
-
NAD
ABD soft, mildly distended, tender to upper abd predominantly supraumbilical
[2024-12-31 16:06] VITALS: BP 135/59
[2024-12-31] MEDS: LOVENOX 40 MG SC (17:36)
[2024-12-31] MEDS: INDERAL LA 80 MG PO (21:11)
[2024-12-31] MEDS: LIPITOR 10 MG PO (21:11)
[2024-12-31 23:00] VITALS: BP 115/52
[2025-01-01] MEDS: SYNTHROID 50 MCG PO (06:05)
[2025-01-01 07:09] VITALS: BP 102/48
[2025-01-01] MEDS: LYRICA 300 MG PO ×2 (07:27→21:01)
[2025-01-01 07:37] LABS: Hematocrit 37.4 % (37.0-47.0); Hemoglobin 11.9 g/dL (12.0-16.0); Mean Corp Hgb Conc. 31.8 g/dL (33.0-37.0); Mean Corpuscular Volume 93.7 fL (81.0-99.0); Platelet Count 167 10^3/uL (130-400); Red Cell Dist. Width 12.6 % (11.5-14.5)
[2025-01-01 08:09] LABS: ALT (SGPT) 40 U/L (0-35); AST (SGOT) 33 U/L (14-36); Albumin 3.1 g/dl (3.5-5.0); Alkaline Phosphatase 96 U/L (38-126); Blood Urea Nitrogen 12 mg/dl (7-17); Calcium 8.5 mg/dl (8.4-10.2); Carbon Dioxide 36 mmol/L (22-30); Chloride 103 mmol/L (98-107); Estimated Creatinine Clearance 102 ml/min; Glucose 102 mg/dl (70-99); Potassium 4.0 mmol/L (3.5-5.1); Sodium 140 mmol/L (135-145); Total Protein 5.8 g/dl (6.3-8.2); eGFR > 60.00
[2025-01-01] MEDS: TORADOL 10 MG IV ×3 (09:12→21:16)
--- NOTE | 2025-01-01 11:00 | CM ---
Oxygen 3 liters Pox 98% Pt has home oxygen with [employer].
Advanced diet to full then low residual diet
Offered VN she requested [facility]
Emperat[facility] S [facility] Liaison aware of referral.
Dgt Mariely will drive her home.
PLAN Home with [facility]
--- NOTE | 2025-01-01 11:27 | W.PN.GS2 ---
Addendum entered and electronically signed by Mark Cerda MD 01/02/25 14:01:
For CDI purposes: This is a 69-year-old female who presents with a partial small bowel obstruction likely secondary to adhesions in the setting of numerous past abdominal surgeries. Now with return of bowel function, improving clinically.
Addendum entered and electronically signed by Mark Cerda MD 01/01/25 18:30:
I saw and examined the patient independently.
The resident's documentation was reviewed and I agree with the note, assessment and plan except where noted below.
Comment: This is a 69-year-old female with a recurrent small bowel obstruction which appears to be resolving.
Will advance to a low residue diet.
Surgery will follow
Original Note:
Today's Communication / Plan
-
Advanced for full liquid diet
Assessment / Plan
-
69-year-old female presenting with small bowel obstruction likely secondary to adhesions in the setting of numerous past abdominal surgeries
AFVSS
Leukocytosis present on admission, now resolved
No n/v. passing flatus/stools, tolerating full liquid diet
Plan:
Advance to Low Residue diet
Analgesics/antiemetics if needed
Medical management as per primary team
Will follow
Subjective Data
-
Date of Service: January 01, 2025
The patient passing BM and gas. Denies abdominal pain, nausea, vomiting, and fever. Improving and tolerating full liquids.
Objective Data
-
Intake and Output
12/31/24 01/01/25 01/02/25
06:59 06:59 06:59
Intake Total 1850.5 / 1850.5 1440 / 1440
Balance 1850.5 / 1850.5 1440 / 1440
Intake:
Oral fluids 960 / 960 1440 / 1440
IV fluids (Total) 840 / 840
IV piggybacks 50.5 / 50.5
Other:
How many times incontinent 2
MODERATE amount urine
Number of approximated MODERATE 3
amounts of urine
Number of approximated LARGE 1
amounts of urine
Number of unmeasured liquid
stools
Rectum 2
Vital Signs
Temp Pulse Resp BP Pulse Ox
97.9 F 54 17 102/48 98
01/01/25 07:09 01/01/25 07:09 01/01/25 07:09 01/01/25 07:09 01/01/25 07:30
Lab Results
01/01/25 07:02
01/01/25 07:02
Calcium 8.5 mg/dl (8.4-10.2) 01/01/25 07:02
Magnesium 1.9 mg/dl (1.6-2.3) 12/30/24 05:39
Total Bilirubin 1.6 mg/dl (0.2-1.3) H D 01/01/25 07:02
Direct Bilirubin 0.4 mg/dl (0.0-0.4) 12/28/24 11:03
AST 33 U/L (14-36) 01/01/25 07:02
ALT 40 U/L (0-35) H 01/01/25 07:02
Alkaline Phosphatase 96 U/L (38-126) 01/01/25 07:02
Total Protein 5.8 g/dl (6.3-8.2) L 01/01/25 07:02
Albumin 3.1 g/dl (3.5-5.0) L 01/01/25 07:02
Physical Exam
-
General: NAD, AAO x3
Lungs: Non-labored breathing
Abdomen: soft, mildly distended, mildly tender to palpation in supraumbilical area
Patient has a rothman catheter: No
Patient has a central line: No
--- NOTE | 2025-01-01 12:51 | W.PN.HOSP.TC ---
Today's Communication/Plan
-
Advance diet to low residual diet
Assessment / Plan
Assessment / Plan
Impression:
69 yo female with a h/o , endometriosis with prior laparoscopies, SWETHA/BSO, SBO in 2000 which resolved without surgery, diverticulitis s/p open left hemicolectomy in 2013 (in [place]), cholecystectomy, and appendectomy who presents with
mid abdominal pain , CT: Several mildly dilated loops of small bowel in the mid lower abdomen possibly adherent to the anterior abdominal wall. Developing obstruction should be considered.
Surgery consulted, patient has multiple loose bowel movement and passing gas, advance her diet to clear liquid, full liquid, no residual
Assessment/Plan:
partial SBO
- suspected etiology is adhesional in setting of prior multiple abdominal surgeries
- CT: Several mildly dilated loops of small bowel in the mid lower abdomen possibly adherent to the anterior abdominal wall. Developing obstruction should be considered
- f/u AXR 12/30: No grossly dilated bowel loops. There is a small amount of gas seen within nondistended small and large bowel loops. There are surgical clips from prior cholecystectomy. Anastomotic suture material in the central pelvis. Subtle
increased attenuation is noted in the region of the renal collecting system, likely residual contrast material within the collecting system related to CT examination performed the previous day.
- diet: Low residue
- pain control
- antiemetics; patient found best relief with Phenergan
- Appreciate surgery input
Leukopenia.
Continue to monitor CBC
Anemia.
Monitor H&H and transfuse if needed
Hyperbilirubinemia
Improving.
Normal LFTs
Morbid Obesity
Hx Obesity Hypoventilation Syndrome
- patient is on O2 at night
- continuous pulse ox while receiving PRN Dilaudid
HLD - Statin
Hypothyroidism - Synthroid
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
CODE STATUS: Full code
DVT prophylaxis: Lovenox
Diet: LRD
Disposition: Advance diet to low residual diet
Total time spent on today's encounter was 55 minutes which included time spent in counseling the patient/family regarding diagnosis and treatment plan as listed above, goals of care, and symptom management. Case was discussed with nursing staff,
specialists, and care coordinators/case management. All labs and imaging personally reviewed by me. Remainder the time spent in detailed review of previous records, lab data, imaging, and other medical provider documentation.
Anticipated Discharge: Within 24 hours
Subjective/Interval History
-
Date of Service: January 01, 2025
Patient seen and examined at bedside, denies any chest pain or shortness of breath, still with loose stool, advance to low residual.
Objective Data
-
Labs:
Laboratory Results
01/01/25
07:02
WBC 4.7 L
Hgb 11.9 L
Hct 37.4
Plt Count 167
Sodium 140
Potassium 4.0
Chloride 103
Carbon Dioxide 36 H
BUN 12
Creatinine 0.7
Glucose 102 H
Calcium 8.5
Total Bilirubin 1.6 H D
AST 33
ALT 40 H
Alkaline Phosphatase 96
Vital Signs:
Vital Signs
Temp Pulse Resp BP Pulse Ox
97.9 F 54 17 102/48 98
01/01/25 07:09 01/01/25 07:09 01/01/25 07:09 01/01/25 07:09 01/01/25 07:30
I&O
12/31/24 01/01/25 01/02/25
06:59 06:59 06:59
Intake Total 1850.5 / 1850.5 1440 / 1440
Balance 1850.5 / 1850.5 1440 / 1440
Physical Exam
-
General: Well Developed, Well Nourished, No Apparent Distress and Comfortable
HEENT: Normocephalic, Atraumatic, Moist Mucous Membranes, No Ptosis, PERRLA and Nose Appears Normal
Respiratory: Clear to Auscultation and Non Labored Respirations
Cardiac: Regular Rhythm and S1/S2
Breast: Deferred by me
GI: Soft, Nontender, Nondistended and Normal Bowel Sounds
Genito-urinary: No Costovertebral Tender
Musculoskeletal: No Clubbing, No Cyanosis and No Edema
Skin: Warm
Neuro: Awake, Alert, Oriented, AO x 3 and No Motor Deficits
Psych: Calm
Data Reviewed
-
Diagnostic Radiology: Image personally visualized and interpreted and Report Reviewed by me
CT Scan: Image personally visualized and interpreted and Report Reviewed by me
Ultrasound: Image personally visualized and interpreted and Report Reviewed by me
MRI: Image personally visualized and interpreted and Report Reviewed by me
Medical Tests (Nuc Med, Echo etc): Image personally visualized and interpreted and Report Reviewed by me
Labs: Labs Reviewed by me
Old Records: Reviewed
[2025-01-01 13:36] VITALS: BP 137/67
[2025-01-01 15:14] VITALS: BP 130/58
[2025-01-01] MEDS: LOVENOX 40 MG SC (17:03)
[2025-01-01] MEDS: INDERAL LA 80 MG PO (21:00)
[2025-01-01] MEDS: LIPITOR 10 MG PO (21:01)
[2025-01-01 23:00] VITALS: BP 156/70
[2025-01-02] MEDS: SYNTHROID 50 MCG PO (05:23)
[2025-01-02 05:41] LABS: Hematocrit 36.5 % (37.0-47.0); Hemoglobin 11.7 g/dL (12.0-16.0); Mean Corp Hgb Conc. 32.1 g/dL (33.0-37.0); Mean Corpuscular Volume 91.9 fL (81.0-99.0); Platelet Count 188 10^3/uL (130-400); Red Cell Dist. Width 12.4 % (11.5-14.5)
[2025-01-02 06:41] LABS: Blood Urea Nitrogen 12 mg/dl (7-17); Calcium 8.7 mg/dl (8.4-10.2); Carbon Dioxide 36 mmol/L (22-30); Chloride 104 mmol/L (98-107); Estimated Creatinine Clearance 119 ml/min; Glucose 101 mg/dl (70-99); Potassium 3.8 mmol/L (3.5-5.1); Sodium 141 mmol/L (135-145); eGFR > 60.00
[2025-01-02 07:06] VITALS: BP 152/68
[2025-01-02] MEDS: LYRICA 300 MG PO ×2 (07:29→20:55)
--- NOTE | 2025-01-02 09:02 | W.PN.GS2 ---
Addendum entered and electronically signed by Dago Coulter MD 01/02/25 13:21:
Patient seen and examined.
Overall improved. Mild residual central abdominal discomfort. Mild nausea overnight. Continues to pass flatus and nonbloody soft stools. No fevers. Of note, she does report eating popcorn prior to the onset of her symptoms.
Gen: NAD
Abd: soft, mild central/epigastric tenderness, obese, ND, non-peritoneal, prior incisions well healed
Patient is a 69 yo F p/w SBO secondary to adhesions and dietary indiscretion
AFVSS
Leukocytosis present on admission, now resolved
Clinical improvement. Passing looser stools. Dietary education provided. Discussed use of bowel medications, however, patient typically has looser stools at baseline. Given her mild nausea overnight would recommend continued monitoring for today
with tentative plan for DC tomorrow. If any further issues would recommend repeat imaging with contrast.
Plan:
-- LRD, dietary education provided
-- OOB/ambulate
-- Minimize arctics as able
-- Monitor for today, tentative plan for DC tomorrow
Original Note:
Today's Communication / Plan
-
Continue Low Residue diet
Assessment / Plan
-
69-year-old female presenting with small bowel obstruction likely secondary to adhesions in the setting of numerous past abdominal surgeries
AFVSS
Leukocytosis present on admission, now resolved (WBC 7.3)
4-5x loose, but formed non-bloody stools, (+) nausea. (-) fever, (-) vomiting
(+) tenderness predominantly in supraumbilical area.
Plan:
Given the patient's ongoing nausea and persistent tenderness to palpation, she would likely benefit for at least one more day of observation. This was explained to the patient, and she is agreeable to staying.
Plan to repeat imaging with contrast prior to discharge to check for progress.
Continue Low Residue diet
Analgesics/antiemetics if needed
Medical management as per primary team
Will follow
Subjective Data
-
Date of Service: January 02, 2025
The patient reports having 4-5 episodes of non-bloody loose, but formed stools and nausea. She denies vomiting, and fever.
Objective Data
-
Intake and Output
01/01/25 01/02/25 01/03/25
06:59 06:59 06:59
Intake Total 1440 / 1440 1140 / 1140
Balance 1440 / 1440 1140 / 1140
Intake:
Oral fluids 1440 / 1440 1140 / 1140
Other:
How many times incontinent 2
MODERATE amount urine
Number of approximated MODERATE 1
amounts of urine
Number of approximated LARGE 1
amounts of urine
Vital Signs
Temp Pulse Resp BP Pulse Ox
97.8 F 61 17 152/68 97
01/02/25 07:06 01/02/25 07:06 01/02/25 07:06 01/02/25 07:06 01/02/25 07:30
Lab Results
01/02/25 05:26
01/02/25 05:26
Calcium 8.7 mg/dl (8.4-10.2) 01/02/25 05:26
Magnesium 1.9 mg/dl (1.6-2.3) 12/30/24 05:39
Total Bilirubin 1.6 mg/dl (0.2-1.3) H D 01/01/25 07:02
Direct Bilirubin 0.4 mg/dl (0.0-0.4) 12/28/24 11:03
AST 33 U/L (14-36) 01/01/25 07:02
ALT 40 U/L (0-35) H 01/01/25 07:02
Alkaline Phosphatase 96 U/L (38-126) 01/01/25 07:02
Total Protein 5.8 g/dl (6.3-8.2) L 01/01/25 07:02
Albumin 3.1 g/dl (3.5-5.0) L 01/01/25 07:02
Physical Exam
-
General: NAD
Lungs: Non-labored breathing
Abdomen: NBS, soft, mildly distended, obese, tender to palpation upper quadrant, but mainly in supraumbilical area.
Ext: (-) edema
Patient has a rothman catheter: No
Patient has a central line: No
[2025-01-02] MEDS: TORADOL 10 MG IV ×2 (11:01→17:03)
--- NOTE | 2025-01-02 11:24 | PN.CDI ---
CDI
- -
CDI:
Physician Documentation Request
Admit Date: 12/28/24 15:24
Dear Doctor So,
Patient admitted with small bowel obstruction.
01/01 PN, '....small bowel obstruction likely secondary to adhesions in the setting of numerous past abdominal surgeries...No n/v. passing flatus/stools, tolerating full liquid diet..'
Please provide in your note the likely extent of the documented small bowel obstruction:
Partial small bowel obstruction
Complete small bowel obstruction
Other
Use of terms such as suspected, likely, concern for, or probable (associated with a specific diagnosis that is being evaluated, monitored, or treated as if it exists) are acceptable and can be coded in the inpatient setting, when documented at the
time of discharge.
Thank you,
Emperatriz WILCOX,RN,CCDS
CDI Specialist
Available via tiger text
Please use your independent medical judgment in providing your response.
--- NOTE | 2025-01-02 13:17 | W.PN.HOSP.TC ---
Addendum entered and electronically signed by Jim Noguera MD 01/02/25 14:35:
Acute on chronic hypoxic respiratory failure-patient uses 2 L of oxygen at home, but in the hospital was on 6 L and now on 3 L
Original Note:
Today's Communication/Plan
-
continue low residual diet
Possible discharge to
Assessment / Plan
Assessment / Plan
Impression:
69 yo female with a h/o , endometriosis with prior laparoscopies, SWETHA/BSO, SBO in 2000 which resolved without surgery, diverticulitis s/p open left hemicolectomy in 2013 (in [place]), cholecystectomy, and appendectomy who presents with
mid abdominal pain , CT: Several mildly dilated loops of small bowel in the mid lower abdomen possibly adherent to the anterior abdominal wall. Developing obstruction should be considered.
Surgery consulted, patient has multiple loose bowel movement and passing gas, advance her diet to clear liquid, full liquid, low residual.
Patient tolerated low residual
Assessment/Plan:
partial SBO
- suspected etiology is adhesional in setting of prior multiple abdominal surgeries
- CT: Several mildly dilated loops of small bowel in the mid lower abdomen possibly adherent to the anterior abdominal wall. Developing obstruction should be considered
- f/u AXR 12/30: No grossly dilated bowel loops. There is a small amount of gas seen within nondistended small and large bowel loops. There are surgical clips from prior cholecystectomy. Anastomotic suture material in the central pelvis. Subtle
increased attenuation is noted in the region of the renal collecting system, likely residual contrast material within the collecting system related to CT examination performed the previous day.
- diet: Low residue
- pain control
- antiemetics; patient found best relief with Phenergan
- Appreciate surgery input
01/02.
Patient tolerated low residual diet
Leukopenia.
Resolved
Anemia.
Monitor H&H and transfuse if needed
Hyperbilirubinemia
Improving.
Normal LFTs
Morbid Obesity
Hx Obesity Hypoventilation Syndrome
- patient is on O2 at night
- continuous pulse ox while receiving PRN Dilaudid
HLD - Statin
Hypothyroidism - Synthroid
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
CODE STATUS: Full code
DVT prophylaxis: Lovenox
Diet: LRD
Disposition: Possible discharge tomorrow
Total time spent on today's encounter was 55 minutes which included time spent in counseling the patient/family regarding diagnosis and treatment plan as listed above, goals of care, and symptom management. Case was discussed with nursing staff,
specialists, and care coordinators/case management. All labs and imaging personally reviewed by me. Remainder the time spent in detailed review of previous records, lab data, imaging, and other medical provider documentation.
Anticipated Discharge: Within 24 hours
Subjective/Interval History
-
Date of Service: January 02, 2025
Patient seen and examined at bedside, denies any chest pain or shortness of breath, tolerating low residual diet, surgery recommending additional day.
Objective Data
-
Labs:
Laboratory Results
01/02/25
05:26
WBC 7.3
Hgb 11.7 L
Hct 36.5 L
Plt Count 188
Sodium 141
Potassium 3.8
Chloride 104
Carbon Dioxide 36 H
BUN 12
Creatinine 0.6
Glucose 101 H
Calcium 8.7
Vital Signs:
Vital Signs
Temp Pulse Resp BP Pulse Ox
97.8 F 61 17 152/68 97
01/02/25 07:06 01/02/25 07:06 01/02/25 07:06 01/02/25 07:06 01/02/25 07:30
I&O
01/01/25 01/02/25 01/03/25
06:59 06:59 06:59
Intake Total 1440 / 1440 1140 / 1140
Balance 1440 / 1440 1140 / 1140
Physical Exam
-
General: Well Developed, Well Nourished, No Apparent Distress and Comfortable
HEENT: Normocephalic, Atraumatic, Moist Mucous Membranes, No Ptosis, PERRLA and Nose Appears Normal
Respiratory: Clear to Auscultation and Non Labored Respirations
Cardiac: Regular Rhythm and S1/S2
Breast: Deferred by me
GI: Soft, Nontender, Nondistended and Normal Bowel Sounds
Genito-urinary: No Costovertebral Tender
Musculoskeletal: No Clubbing, No Cyanosis and No Edema
Skin: Warm
Neuro: Awake, Alert, Oriented, AO x 3 and No Motor Deficits
Psych: Calm
--- NOTE | 2025-01-02 13:33 | PN.CDI ---
CDI
- -
CDI:
Physician Documentation Request
Admit Date: 12/28/24 15:[address] Noguera,
Patient admitted with small bowel obstruction.
01/02 PN, 'Morbid Obesity....Hx Obesity Hypoventilation Syndrome- patient is on O2 at night...'
Daytime oxygen use documented below:
Selected Entries
12/29/24
07:00 12/29/24
11:00 12/29/24
15:25
Nasal Cannula flow liters per minute 6 6 5
12/29/24
19:00 12/30/24
08:39 12/30/24
08:45
Nasal Cannula flow liters per minute 5 5 5
12/30/24
12:09 12/30/24
16:30 12/30/24
19:00
Nasal Cannula flow liters per minute 5 5 5
Please provide in your note the likely diagnosis associated with daytime oxygen use:
Acute hypoxic respiratory failure
Hypoxia only
Other
Use of terms such as suspected, likely, concern for, or probable (associated with a specific diagnosis that is being evaluated, monitored, or treated as if it exists) are acceptable and can be coded in the inpatient setting, when documented at the
time of discharge.
Thank you,
Emperatriz WILCOX,RN,CCDS
CDI Specialist
Available via [place] text
Please use your independent medical judgment in providing your response.
[2025-01-02 14:57] VITALS: BP 161/68
[2025-01-02 15:38] VITALS: PULSE 74; O2SAT 94
--- NOTE | 2025-01-02 15:40 | CM ---
Oxygen 3 liters Pox 97% to room air Pox 94%
Pt has home oxygen with [employer].
Advanced diet to low residual diet
[facility]
Dgt Mariely will drive her home.
PLAN Home with VN
[2025-01-02] MEDS: LOVENOX 40 MG SC (17:02)
[2025-01-02] MEDS: LIPITOR 10 MG PO (21:02)
[2025-01-02] MEDS: INDERAL LA 80 MG PO (21:03)
[2025-01-02 21:09] VITALS: BP 178/64
[2025-01-02 23:24] VITALS: BP 160/74
[2025-01-03] MEDS: SYNTHROID 50 MCG PO (05:21)
[2025-01-03 07:00] VITALS: BP 171/72
[2025-01-03] MEDS: LYRICA 300 MG PO (07:47)
--- NOTE | 2025-01-03 11:42 | W.PN.GS2 ---
Addendum entered and electronically signed by Florencio Arriaga MD 01/03/25 12:14:
I was physically present and personally performed the kaba portions of the surgical evaluation and/or procedure with the resident. I discussed the findings, reviewed the resident�s note, and confirmed the medical decision-making. I provided direct
supervision as required and agree with the assessment and plan as documented with the following additions/corrections:
No complaints, marek LRD, pasing flatus and BMs, less ttp (remains very mildly ttp at upper mid abdomen), dietary education provided. OK for DC
Original Note:
Today's Communication / Plan
-
Disposition planning
Assessment / Plan
-
69-year-old female presenting with small bowel obstruction likely secondary to adhesions in the setting of numerous past abdominal surgeries
Afebrile, increased BP at 170/72
Leukocytosis present on admission, now resolved
Formed non-bloody stool last night, (-) nausea. (-) fever, (-) vomiting
(+) tenderness predominantly in supraumbilical area--- improved from previous days
Plan:
The patient is ready for discharge from surgery's stand point. She may benefit from blood pressure follow-up as outpatient though.
Dietary modifications aimed at reducing risk of recurrent SBO discussed in detail with patient. All questions were addressed at length.
-Disposition planning
-May benefit from outpatient Blood pressure follow up
-Medical management per primary care team
Subjective Data
-
Date of Service: January 03, 2025
The patient abdominal pain continues to improve. She denies nausea, vomiting, and fever. Last bowel movement was yesterday, formed and non-bloody. She expressed eagerness to go home, and was curious about benefits of weight loss medications with
regards to her condition.
Objective Data
-
Intake and Output
01/02/25 01/03/25 01/04/25
06:59 06:59 06:59
Intake Total 1140 / 1140 1320 / 1320
Balance 1140 / 1140 1320 / 1320
Intake:
Oral fluids 1140 / 1140 1320 / 1320
Other:
How many times incontinent 4
MODERATE amount urine
Number of approximated MODERATE 1 2
amounts of urine
Vital Signs
Temp Pulse Resp BP Pulse Ox
97.9 F 56 19 171/72 98
01/03/25 07:00 01/03/25 07:00 01/03/25 07:00 01/03/25 07:00 01/03/25 07:00
Lab Results
01/02/25 05:26
01/02/25 05:26
Calcium 8.7 mg/dl (8.4-10.2) 01/02/25 05:26
Magnesium 1.9 mg/dl (1.6-2.3) 12/30/24 05:39
Total Bilirubin 1.6 mg/dl (0.2-1.3) H D 01/01/25 07:02
Direct Bilirubin 0.4 mg/dl (0.0-0.4) 12/28/24 11:03
AST 33 U/L (14-36) 01/01/25 07:02
ALT 40 U/L (0-35) H 01/01/25 07:02
Alkaline Phosphatase 96 U/L (38-126) 01/01/25 07:02
Total Protein 5.8 g/dl (6.3-8.2) L 01/01/25 07:02
Albumin 3.1 g/dl (3.5-5.0) L 01/01/25 07:02
Physical Exam
-
Gen: NAD
Cardio: Regular heart rate and rhythm
Lungs: Non-labored breathing
Abdomen: soft, obese, slightly tender in supraumbilical area, tympanitic all throughout, (+) bruise on left lower quadrant from Lovenox, slight tender.
Patient has a rothman catheter: No
Patient has a central line: No
--- NOTE | 2025-01-03 12:34 | W.PN.HOSP.TC ---
Today's Communication/Plan
-
Discharge home today
Assessment / Plan
Assessment / Plan
Impression:
69 yo female with a h/o , endometriosis with prior laparoscopies, SWETHA/BSO, SBO in 2000 which resolved without surgery, diverticulitis s/p open left hemicolectomy in 2013 (in [place]), cholecystectomy, and appendectomy who presents with
mid abdominal pain , CT: Several mildly dilated loops of small bowel in the mid lower abdomen possibly adherent to the anterior abdominal wall. Developing obstruction should be considered.
Surgery consulted, patient has multiple loose bowel movement and passing gas, advance her diet to clear liquid, full liquid, low residual.
Patient tolerated low residual
Will be discharged home today and follow-up with surgery as instructed.
Assessment/Plan:
partial SBO
- suspected etiology is adhesional in setting of prior multiple abdominal surgeries
- CT: Several mildly dilated loops of small bowel in the mid lower abdomen possibly adherent to the anterior abdominal wall. Developing obstruction should be considered
- f/u AXR 12/30: No grossly dilated bowel loops. There is a small amount of gas seen within nondistended small and large bowel loops. There are surgical clips from prior cholecystectomy. Anastomotic suture material in the central pelvis. Subtle
increased attenuation is noted in the region of the renal collecting system, likely residual contrast material within the collecting system related to CT examination performed the previous day.
- diet: Low residue
- pain control
- antiemetics; patient found best relief with Phenergan
- Appreciate surgery input
01/02.
Patient tolerated low residual diet
Leukopenia.
Resolved
Anemia.
Monitor H&H and transfuse if needed
Hyperbilirubinemia
Improving.
Normal LFTs
Morbid Obesity
Hx Obesity Hypoventilation Syndrome
- patient is on O2 at night
- continuous pulse ox while receiving PRN Dilaudid
HLD - Statin
Hypothyroidism - Synthroid
HTN - [employer] Propranolol
CODE STATUS: Full code
DVT prophylaxis: Lovenox
Diet: LRD
Disposition: Discharge home today
Total time spent on today's encounter was 55 minutes which included time spent in counseling the patient/family regarding diagnosis and treatment plan as listed above, goals of care, and symptom management. Case was discussed with nursing staff,
specialists, and care coordinators/case management. All labs and imaging personally reviewed by me. Remainder the time spent in detailed review of previous records, lab data, imaging, and other medical provider documentation.
Anticipated Discharge: Today
Subjective/Interval History
-
Date of Service: January 03, 2025
Patient seen and examined at bedside, denies any chest pain or shortness of breath, no abdominal pain, no nausea, no vomiting, no diarrhea or constipation.
Objective Data
-
Vital Signs:
Vital Signs
Temp Pulse Resp BP Pulse Ox
97.9 F 56 19 171/72 98
01/03/25 07:00 01/03/25 07:00 01/03/25 07:00 01/03/25 07:00 01/03/25 07:00
I&O
01/02/25 01/03/25 01/04/25
06:59 06:59 06:59
Intake Total 1140 / 1140 1320 / 1320
Balance 1140 / 1140 1320 / 1320
Physical Exam
-
General: Well Developed, Well Nourished, No Apparent Distress and Comfortable
HEENT: Normocephalic, Atraumatic, Moist Mucous Membranes, No Ptosis, PERRLA and Nose Appears Normal
Respiratory: Clear to Auscultation and Non Labored Respirations
Cardiac: Regular Rhythm and S1/S2
Breast: Deferred by me
GI: Soft, Nontender, Nondistended and Normal Bowel Sounds
Genito-urinary: No Costovertebral Tender
Musculoskeletal: No Clubbing, No Cyanosis and No Edema
Skin: Warm
Neuro: Awake, Alert, Oriented, AO x 3 and No Motor Deficits
Psych: Calm
--- NOTE | 2025-01-03 12:39 | W.DCSUMMARY ---
Discharge Summary
Discharge Data
Date of Admission: 12/28/24
Date of Discharge: 01/03/25
Total time spent discharging patient (in min): 40
-
Pending Results: No
Hospital Course
Hospital course
69 yo female with a h/o , endometriosis with prior laparoscopies, SWETHA/BSO, SBO in 2000 which resolved without surgery, diverticulitis s/p open left hemicolectomy in 2013 (in [place]), cholecystectomy, and appendectomy who presents with mid
abdominal pain , CT: Several mildly dilated loops of small bowel in the mid lower abdomen possibly adherent to the anterior abdominal wall. Developing obstruction should be considered.
Surgery consulted, patient has multiple loose bowel movement and passing gas, advance her diet to clear liquid, full liquid, low residual.
Patient tolerated low residual
Will be discharged home today and follow-up with surgery as instructed.
During hospitalization patient was treated from the following
partial SBO
- suspected etiology is adhesional in setting of prior multiple abdominal surgeries
- CT: Several mildly dilated loops of small bowel in the mid lower abdomen possibly adherent to the anterior abdominal wall. Developing obstruction should be considered
- f/u AXR 12/30: No grossly dilated bowel loops. There is a small amount of gas seen within nondistended small and large bowel loops. There are surgical clips from prior cholecystectomy. Anastomotic suture material in the central pelvis. Subtle
increased attenuation is noted in the region of the renal collecting system, likely residual contrast material within the collecting system related to CT examination performed the previous day.
- diet: Low residue
- pain control
- antiemetics; patient found best relief with Phenergan
- Appreciate surgery input
01/02.
Patient tolerated low residual diet
Leukopenia.
Resolved
Anemia.
Monitor H&H and transfuse if needed
Hyperbilirubinemia
Improving.
Normal LFTs
Morbid Obesity
Hx Obesity Hypoventilation Syndrome
- patient is on O2 at night
- continuous pulse ox while receiving PRN Dilaudid
HLD - Statin
Hypothyroidism - Synthroid
HTN - [employer] Propranolol
CODE STATUS: Full code
DVT prophylaxis: Lovenox
Diet: LRD
Disposition: Discharge home today
Total time spent on today's encounter was 40 minutes which included time spent in counseling the patient/family regarding diagnosis and treatment plan as listed above, goals of care, and symptom management. Case was discussed with nursing staff,
specialists, and care coordinators/case management. All labs and imaging personally reviewed by me. Remainder the time spent in detailed review of previous records, lab data, imaging, and other medical provider documentation.
Anticipated Discharge: Today
Discharge Plan
-
Patient Disposition: Home with Home Care
Discharge Diagnosis/Procedures: partial SBO.
Diet: Low Residue
Activity: With assistance and As tolerated
Instructions: Low-fiber diet
Referrals:
Devan Aburto MD [Active, Surgical] - in one to two weeks
Kelsey Braswell DO [Family Provider, Internal Medicine]
Prescriptions:
Continued
loperamide 2 mg Capsule
2 mg PO TIDPRN PRN (Reason: diarrhea)
atorvastatin 10 mg tablet
10 mg PO HS
levothyroxine 50 mcg tablet
50 mcg PO DAILY
propranolol 80 mg capsule,extended release 24hr
80 mg PO HS
pregabalin 300 mg Capsule
300 mg PO BID
Discharge Orders:
Discharge Patient (As Directed); Ordered 01/03/25
Ordered By: Jim Noguera
Discharge Date and Time
Print Language: NIGERIAN
--- NOTE | 2025-01-03 13:45 | W.PN.UPDATE ---
Update Note
Progress Note Update
Likely Partial small bowel obstruction likely secondary to adhesions in the setting of numerous past abdominal surgeries
Afebrile, leukocytosis resolved.
Tolerating low residue diet. Abdominal pain much improved. (+) Bowel movement (+) flatus
Abdomen on PE: soft, obese, mildly tender in supraumbilical area, non-distended
--- NOTE | 2025-01-03 14:33 | CM ---
entered order for discharge.
Oxygen 3 liters Pox 98% she said she uses oxygen as needed at home.
Pt has home oxygen with [employer].
[facility] set up by [facility]ia[facility].
Dgt Mariely will drive her home.
PLAN Home with [facility]
[2025-01-03 15:00] VITALS: BP 179/79
== END 2025-01-03 18:11 | disposition home health service (06) | DRG 388 ==
LOC: 3 WEST ACU 15:24
PROVIDERS: Internal Medicine; Physician Assistant; ADMITTING PHYSICIAN Student in an Organized Health Care Education/Training Program; ATTENDING PHYSICIAN General Practice; CONSULT PHYSICIAN Surgery; EMERGENCY PHYSICIAN Emergency Medicine; FAMILY PHYSICIAN Internal Medicine
DX: K56.51 Intestinal adhesions [bands], with partial obstruction (principal); J96.21 Acute and chronic respiratory failure with hypoxia; E66.2 Morbid (severe) obesity with alveolar hypoventilation; Z68.41 Body mass index [BMI] 40.0-44.9, adult; J98.11 Atelectasis; J45.20 Mild intermittent asthma, uncomplicated; D72.819 Decreased white blood cell count, unspecified; M79.7 Fibromyalgia; L40.9 Psoriasis, unspecified; M48.061 Spinal stenosis, lumbar region without neurogenic claudication; K57.30 Diverticulosis of large intestine without perforation or abscess without bleeding; E03.9 Hypothyroidism, unspecified; N80.9 Endometriosis, unspecified; E80.4 Gilbert syndrome; I10 Essential (primary) hypertension; N28.1 Cyst of kidney, acquired; Z79.899 Other long term (current) drug therapy; D72.829 Elevated white blood cell count, unspecified; E78.00 Pure hypercholesterolemia, unspecified; Z79.890 Hormone replacement therapy; D64.9 Anemia, unspecified; E80.6 Other disorders of bilirubin metabolism
CPT/HCPCS: 74018; 74177; 80048; 80053; 82248; 83605; 83690; 83735; 85025; 85027; 93005; 96361; 96374; 96375; 96376; 97116; 97162; 97167; 99285; Q9967